=== PATIENT | male | born 1940 | race Caucasian/White ===

== ENCOUNTER 2017-04-04 13:23 | Inpatient (IN) | payer MEDICARE, OTHER ==
[2017-04-04] VITALS (9 sets, daily range): BP systolic 121–153; BP diastolic 65–82; PULSE 56–81; RESP 16–21; O2SAT 92–97
[~2017-04-04] VITALS: Ht 170.2 cm; Wt 81.2 kg
[~2017-04-04 13:23] MED LIST: ASPI-973 PO; GLUC500T12 PO; LISI10TA PO; OMEP20CA11 PO; SAW/1TAB2 PO; SILO4CAP PO; SIMV40TA5 PO; marijuana
--- NOTE | 2017-04-04 13:54 | ED.REPORT ---
HPI-Dyspnea / Wheezing Date of Service April 04, 2017 ED Provider: Dr. Mcgowan Pt is a 77 year old male with a hx of HTN, NSVT, proximal SVT, GERD and chronic back pain presenting to the ED complaining of productive cough and SOB for 3 days. Associated symptoms include lightheadedness, LE swelling ( reports), increased dyspnea on exertion. Denies fever, chest pain, diaphoresis, chills, palpitations. He was seen at today and was sent here due to new onset afib today. He reports that his breathing is worsened at night, and he has had to increase the angle of elevation that he sleeps at. 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 Pt usually walks 2-3 miles without SOB but since these symptoms began has not been able to. He denies any hx of heart disease or recent change in medications. Nursing Notes Stated Complaint: SOB Chief Complaint: Respiratory Complaints Nursing Notes Reviewed: Yes ([employer], [employer] not reconciled) Allergies: Coded Allergies: No Known Drug Allergies (Verified Allergy, Unknown, 03/11/16) Scheduled Aspirin (Aspirin) 81 Mg Tablet 81 MG PO DAILY Lisinopril (Lisinopril) 10 Mg Tablet 10 MG PO DAILY Omeprazole (Omeprazole) 20 Mg Capsule.dr 20 MG PO DAILY Simvastatin (Simvastatin) 40 Mg Tablet 40 MG PO HS Miscellaneous Medications ([marijuana]) Glucosamine (Glucosamine) 500 Mg Tablet 500 MG PO Saw/Vit E/Sod Radha/Lyc/Beta/Pyg (Prostate Health Caplet) 1 Each Tablet 1 EACH PO Silodosin (Rapaflo) 4 Mg Capsule 4 MG PO General Time Seen by MD: 13:54 Chief Complaint Shortness of breath Hx Obtained From: Patient Arrived By: Walk-in Sudden in Onset?: No Onset Occurred: 3 days ago Symptom Duration: Since onset Severity: Current: No pain currently Severity: Maximum: No pain Recent Healthcare: No recent hospitalization, Recent doctor visit Similar Sx Previous: Yes Past Medical History Past Medical History Pulmonary function tests for shortness of breath September 2016 revealed a very mild restrictive pattern, with a very mild reduction diffusing capacity Hypertension Hyperlipidemia GERD History of dysphagia history of anxiety Nonsustained ventricular tachycardia History of paroxysmal SVT Past Surgical History Endoscopy mild gastritis April 2016 Knee surgery Hernia repair Smoking History Former Smoker Social History Drug Use: THC Ambulatory Status Independent Review of Systems Constitutional: Denies: Chills, Fatigue, Fever Respiratory: Reports: Dyspnea on exertion, Prod cough, clear, Shortness of breath Cardiovascular: Denies: Chest pain, Palpitations Musculoskeletal: Reports: Extremity swelling Skin: Denies Diaphoresis Complete sys rev & neg: except as marked. Neurologic: Reports: Lightheaded Physical Exam Initial Vital Signs Vital Signs (First) Date Time Temp Pulse Resp B/P Pulse Ox O2 Delivery O2 Flow Rate FiO2 04/04/17 13:37 37.2 56 16 129/82 97 Room Air Initial VS: Reviewed, Vital signs normal Head / Eyes: Atraumatic, Normocephalic, PERRL ENT: Mucous membranes moist, Conjunctiva normal, No scleral icterus Abdomen / GI: Soft, Non-tender, No guarding, No rebound, No distention Skin: Warm, Dry, No cyanosis Neurologic: Alert, Oriented, Nonfocal Psychiatric: Mood/affect normal, Behavior normal, Normal thought content General/Constitutional: Awake, Alert, No acute distress Respiratory / Chest: Atraumatic, Breath sounds NL, Breath sounds = bilat, No respiratory distress Some crackles at bases. Cardiovascular: No gallop, No rubs Mild I/II heart murmur. Lower Extremity / Pelvis / MS: Neurologic intact, Vascular intact Mild +1 edema Interpretation & Diagnostics Lab Results Interpretation Result Diagram: 04/04/17 1400 04/04/17 1400 Test 04/04/17 14:00 04/04/17 15:20 White Blood Count 10.7th/mm3 (3.8-10.1) Red Blood Count 4.22mil/mm3 (4.40-5.80) Hemoglobin 13.2g/dL (13.8-17.2) Hematocrit 38.6% (41.0-50.0) Mean Corpuscular Volume 91.5fL (81-100) Mean Corpuscular Hemoglobin 31.3pg (27.0-35.0) Mean Corpuscular Hemoglobin Concent 34.2% (32.0-37.0) Red Cell Distribution Width 13.2% (12.3-15.4) Platelet Count 283bil/L (150-400) Neutrophils (%) (Auto) 78.3% (40-74) Lymphocytes (%) (Auto) 10.2% (14-46) Monocytes (%) (Auto) 9.1% (4-12) Eosinophils (%) (Auto) 1.1% (0-5) Basophils (%) (Auto) 0.5% (0-3) Prothrombin Time 10.1sec (8.1-12.5) Prothromb Time International Ratio 0.95ratio Sodium Level 129mEq/L (134-144) Potassium Level 4.1mEq/L (3.5-5.2) Chloride Level 90mEq/L (97-108) Carbon Dioxide Level 24mmol/L (18-29) Blood Urea Nitrogen 22mg/dL (8-27) Creatinine 0.92mg/dL (0.76-1.27) Estimat Glomerular Filtration Rate 85mL/min (>59) Glucose Level 109mg/dL (60-99) Calcium Level 9.4mg/dL (8.5-10.1) Total Bilirubin 0.6mg/dL (0.0-1.2) Aspartate Amino Transf (AST/SGOT) 24U/L (0-50) Alanine Aminotransferase (ALT/SGPT) 22U/L (0-44) Alkaline Phosphatase 97U/L (25-160) Troponin T < 0.010ug/L (0.0-0.011) Pro-B-Type Natriuretic Peptide 1439pg/mL (0-486) Total Protein 7.2g/dL (6.4-8.4) Albumin 3.9g/dL (3.4-5.0) Thyroid Stimulating Hormone (TSH) 1.060uIU/mL (0.450-4.500) Hold Schafer Top Tube Received (Received) Urine Color Yellow (YELLOW) Urine Appearance Clear (CLEAR,HAZY) Urine pH 7.0 (5.0-8.0) Urine Specific [place] 1.015 (1.003-1.035) Urine Protein Negativemg/dL (NEG,TRACE) Urine Glucose (UA) Negativemg/dL (NEGATIVE) Urine Ketones Negativemg/dL (NEGATIVE) Urine Occult Blood Negative (NEGATIVE) Urine Nitrite Negative (NEGATIVE) Urine Bilirubin Negative (NEGATIVE) Urine Urobilinogen Normalmg/dL (NORMAL) Urine Leukocyte Esterase Negative (NEGATIVE) Urine RBC 0-2/hpf (0-2) Urine WBC 0-5/hpf (0-5) Urine Epithelial Cells None/hpf (NONE-MOD) Urine Crystals None seen (NONE SEEN) Urine Bacteria Few/hpf (NONE-FEW) Urine Hyaline Casts None/lpf (NONE) Urine Granular Casts None seen (NONE SEEN) Urine Waxy Casts None seen (NONE SEEN) Urine Red Blood Cell Casts None seen (NONE SEEN) Urine White Blood Cell Casts None seen (NONE SEEN) Urine Mucus None seen (None Seen) Urine Trichomonas None seen (NONE SEEN) Urine Yeast None (NONE SEEN) Urinalysis Comment None Urine Culture Reflexed Not indicated Lab Results Interpretation: CBC normal CMP mild hyponatremia Troponin negative BMP elevated TSH normal ECG Interpretation ECG Interpretation: EKG demonstrated rate controlled atrial fibrillation rate of 59, markedly peaked T waves, no acute ischemic changes, I do not have access to any old EKGs-ray except for the EKG obtained from urgent care today, which is unchanged from the current EKG, urgent care indicates that the atrophic versus new compared to an old EKG they have access to, but that I do not out current EMR. I urgent care report, and patient also agrees as far she is aware, the atrial fibrillation is new Time: 14:03 Interpreted by: ED physician X-Ray Chest Interpretation Chest Xray Interpretation: IMPRESSION: 1. Mild chronic interstitial prominence without definite acute cardiopulmonary disease. Dictated by: Sunny Pedraza M.D. on 04/04/2017 at 14:24 View: Portable, 1 view Interpretation / Wet Read by: Interpret - Radiologist Re-Eval/Medical Decision Med Decision/Clinical Course This is a 77-year-old male has some chronic lung disease followed by pulmonology mild for which he uses an inhaler, but now presents with 3 days of increasing shortness of breath, orthopnea, and significantly worsening dyspnea on exertion. He reports no fever, he does have a mild cough with clear sputum. He went to urgent care was noted to have new leg edema, as well as to be in newly diagnosed atrial fibrillation (rate controlled) and was sent to the emergency department. He denies any previous known cardiac history and his had a negative nuclear stress test of the normal EF of 70% March of last year, but he was in a sinus rhythm at that time, and I cannot find any cardiac cardiology notes a prior echocardiograms. The records from urgent care also claim a history of mild aortic valvular disease, but the patient cannot tell me anything about that. He has been using his pro-air aggressively over the past few days, which is only helped marginally-he does not normally use it at baseline., He does have crackles, he does have +1 edema of the legs, and he indeed does have atrial fibrillation, and he also has some mild +1 to +2 heart murmur on exam. His EKG reveals new rate controlled atrial fibrillation unchanged from the EKG at urgent care, but I do not have access to any old EKGs-according to urgent care they stated this is new, and indeed is not mentioning in any previous records I have access to. His chest x-ray suspicious for mild CHF, but not entirely diagnostic. Further arguing for CHF is and elevated BNP. At this point the patient's having baseline lung disease, now with worsening shortness of breath, with a new dysrhythmia, with possible valvular disease, and findings suspicious for CHF, I recommended admission and an echocardiogram. The patient on some low-dose furosemide as he is not on a diuretic. The patient's being admitted after the case was discussed with the hospitalist. Source of Hx: Old records ( ) Re-Evaluation/Progress : Time of Eval: 15:49 Patient Status: Condition improved Re-Evaluation/Progress Note: Discussed xray results and plan for admission. Pt understands and agrees with plan. Consultation : Referral / Consult Name: Pam Herman DO Consulted With: Hospitalist Call Returned at: 16:16 [employer] Florist: Will see patient, Agrees with plan, Accepts admit Differential Diagnosis: Positive: Congestive heart failure, Dysrhythmia (new- onset fibrillation), Negative: Acute coronary syndrome, Cardiogenic shock, Panic attack, Pneumonia , Pneumothorax, Pulmonary embolism, Respiratory failure Counseled Regarding: Diagnosis, Lab results, Need for follow-up, When/why to return to ED Discharge & Departure Impression: Primary Impression: Congestive heart failure Congestive heart failure type: unspecified congestive heart failure type Congestive heart failure chronicity: acute Qualified Code: I50.9 - Heart failure, unspecified Additional Impressions: New onset atrial fibrillation Shortness of breath Elevated brain natriuretic peptide (BNP) level Chronic interstitial lung disease Disposition: ADMITTED TO HOSPITAL Discharge Condition All VS Reviewed: Yes Condition: Improved Referrals: Bhavik Vega (PCP) Scribe Attestation Portions of this note were transcribed by Michelle Katz. I, Dr. Mcgowan personally performed the history, physical exam and medical decision-making; I reviewed and confirmed the accuracy of the information in the transcribed note. Signed by: Devan Ruiz, 04/04/2017 at 1619. copies to: Bhavik Vega Matthew F MD April 04, 2017 13:54 MICHELLE KATZ April 04, 2017 14:03
[2017-04-04] MEDS ORDERED: Ipratropium 0.02% 0.5 mg/2.5 mL Inhalation Solution NEB ONE (14:10)
[2017-04-04] MEDS ORDERED: Albuterol 2.5 mg/3 mL Inhalation Solution NEB ONE (14:10)
[2017-04-04 14:15] LABS: BASOPHILS % (AUTO) 0.5 % (0-3); EOSINOPHILS % (AUTO) 1.1 % (0-5); MONOCYTES % (AUTO) 9.1 % (4-12); Mean Corpuscular Hemoglobin 31.3 pg (27.0-35.0); Mean Corpuscular Volume 91.5 fL (81-100); NEUTROPHILS % (AUTO) 78.3 % (40-74); Platelet Count 283 bil/L (150-400)
[2017-04-04 14:32] LABS: INR 0.95 ratio
--- NOTE | 2017-04-04 14:33 | DRSVH ---
PROCEDURE: X-RAY CHEST ONE VIEW, PORTABLE ([id number]) INDICATIONS: SOB TECHNIQUE: One view of the chest was acquired. COMPARISON: [facility], CR, XR CHEST 2VW, 10/13/2016, 9:34. FINDINGS: Surgical changes and devices: None. Lungs and pleura: No pleural effusions or pneumothorax. There is mild interstitial prominence which appears chronic. No acute consolidation. Mediastinum: Mediastinal contours appear unchanged. Heart size is within normal limits. Bones and chest wall: No suspicious bony lesions. Overlying soft tissues appear unremarkable. IMPRESSION: 1. Mild chronic interstitial prominence without definite acute cardiopulmonary disease. Dictated by: Sunny Pedraza M.D. on 04/04/2017 at 14:24 Approved by: Sunny Pedraza M.D. on 04/04/2017 at 14:25
[2017-04-04 14:52] LABS: TROPONIN T < 0.010 ug/L (0.0-0.011)
[2017-04-04] MEDS ORDERED: Furosemide 10 mg/mL 4 mL Inj IVPUSH ONE (15:40)
[2017-04-04 16:03] LABS: APPEARANCE,URINE CLEAR (CLEAR,HAZY); COLOR,URINE YELLOW (YELLOW); OCCULT BLOOD,URINE NEGATIVE (NEGATIVE); UROBILINOGEN,URINE NORMAL (NORMAL)
[2017-04-04] MEDS ORDERED: FLUT12AE8 INHALATION (18:06)
[2017-04-04] MEDS ORDERED: METO50TA3 PO (18:06)
[2017-04-04] MEDS ORDERED: ALBU8.5H2 INHALATION (18:06)
[2017-04-04] MEDS ORDERED: HYG25 PO (18:06)
[2017-04-04] MEDS ORDERED: Alum-Mag Hydrox-Simeth 30 mL Suspension PO PRN (18:10)
[2017-04-04] MEDS ORDERED: Senna-Docusate 8.6-50 mg Tablet PO PRN (18:10)
[2017-04-04] MEDS ORDERED: Ondansetron 2 mg/mL 2 mL Inj IVPUSH PRN (18:10)
[2017-04-04] MEDS ORDERED: Polyethylene Glycol (PEG) 17 Gm Powder PO PRN (18:10)
[2017-04-04] MEDS ORDERED: Albuterol HFA 60 Puff 8 Gm Inhaler INHALATION PRN (18:15)
--- NOTE | 2017-04-04 18:17 | PCM.ADCARE ---
Advance Care Planning Note Plan: Purpose of encounter: Goals of care Parties in attendance: The patient Decisional capacity: Good Plan: The patient is aware of the current diagnosis and would like to continue to be full code. The patient understands that this means for chest compressions , intubation, pressors, and all measures involved with CPR. CODE STATUS: Full code Time spent with advanced care planning: Greater than 16 minutes Pam Herman DO April 04, 2017 18:17
[2017-04-04] MEDS ORDERED: Albuterol 2.5 mg/3 mL Inhalation Solution NEB PRN (18:30)
--- NOTE | 2017-04-04 18:31 | PCM.HPMED ---
Subjective Date of Service April 04, 2017 Primary Provider: Admitting Physician: Pam Herman DO Primary Care Physician: Joshua Adkins MD Attending Physician: Pam Herman DO Allergies Coded Allergies: No Known Drug Allergies (Verified Allergy, Unknown, 03/11/16) PMH Social History Hx Alcohol Use: No Hx Substance Use: Yes (marijuana edibles) Smoking Status: Former Smoker Exam Vital Signs Vital Sign - Last Date Time Temp Pulse Resp B/P Pulse Ox O2 Delivery O2 Flow Rate FiO2 04/04/17 17:38 71 04/04/17 17:23 37.0 18 143/78 96 Room Air Lab and Diagnostics Result Diagram: 04/04/17 1400 04/04/17 1400 Assessment & Plan HPI: Patient is a 77-year-old male who presents to the emergency room with the complaint of increasing shortness of breath. The patient stated that he went to the urgent care and at that time they found him to be more short of breath and showing signs of A. fib with RVR and CHF. The patient was immediately brought to the emergency room and was found to still be in A. fib but was rate controlled. The patient states that he does not have a history of A. fib nor does he have a history of CHF. The patient states that he has had shortness of breath previously however nothing to this extent. Patient currently complains of some chest pain, shortness of breath but denies any nausea vomiting or diarrhea. Home medications: -Albuterol 2 puffs every 2 when necessary wheezing Aspirin 81 mg daily Chlorthalidone 25 mg daily Flovent 110 g 2 puffs twice a day Metoprolol tartrate 50 mg by mouth twice a day Omeprazole 20 mg by mouth daily Prostate health capsule 1 daily Rapaflo 4 mg daily Simvastatin 40 mg daily at bedtime Marijuana Allergies: No known drug allergies PMHx: Hyperlipidemia Hypertension GERD with past history of bleeding ulcers BPH Mild dementia SHx: Bilateral total knee replacement Bilateral hernia repair Tonsillectomy as a child FHx: Father age 74 secondary to [place] Sr. 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 Please see HPI for pertinent positives, all other systems are negatives. Physical Exam: GEN: Patient was awake, alert, responding appropriately to questions HEENT: Pupils equal round and reactive to light, extraocular eye muscles intact , Neck soft supple, trachea midline, nomocephalic/atraumatic CV: Irregular Respiratory: Coarse breath sounds, no wheezes rales or rhonchi GI: +bowel sounds x4, soft, compressible, nontender to palpation EXT: no clubbing, cyanosis, edema Neuro: Cranial nerves II-XII grossly intact Psych: mood and affect were appropriate Assessment and Plan 77-year-old male presents with new onset CHF and A. fib with RVR New onset CHF -Lasix 40 mg by mouth daily - Echo -Decreased patient's home dose of metoprolol from 50 mg twice a day to 25 mg twice a day secondary to bradycardia -Telemetry -Consult cardiology in the morning -Follow up BNP in the morning -TSH pending -Hemoglobin A1c pending -Follow up labs in the morning -Nutrition consult -Strict I's and O's A. fib (currently rate controlled) new onset -Continue to monitor via telemetry -Metoprolol 25 mg twice a day Hypertension -Continue lisinopril 10 mg daily -Decrease metoprolol to 25 mg twice a day - Continue to monitor Hyperlipidemia -Continue simvastatin 40 mg by mouth daily at bedtime BPH -Tamsulosin 0.4 mg daily GERD -Continue omeprazole 20 mg daily Diet: Heart healthy DVT prophylaxis: Heparin 3 times a day subcutaneous Code Status: Full code Disposition: Due to the nature of the patient's current diagnosis anticipated stay is greater than 2 midnight Time spent One hour Pam Herman DO April 04, 2017 18:31
--- NOTE | 2017-04-04 18:46 | NUR ---
ADMIT Admitted a 77/M into room 3004 following report from ED RN Tawanna Hand Pt arrived ~1730 via stretcher, able to amb to bed without c/o dizziness. Per pt, he has been SOB x3 days and went to urgent care who then sent him to ED. Pt denies any pain/discomfort with exception of slight tightness in chest which he feels is anxiety r/t admission. MD in room and aware. IV flushing without issue. Pt on RA at this time. TELE in place: per technical staff assistant pt is afib in the 70-80's. Pt placed on strict I/O's so educated on importance of using urinal to allow staff to measure. Pt introduced to staff, call light and bed controls. Bed in lowest, locked position and call light in reach.
[2017-04-04 19:09] LABS: INR 0.98 ratio
[2017-04-04 19:23] LABS: Magnesium 1.6 mg/dL (1.6-2.6)
[2017-04-04] MEDS ORDERED: FLUTICASONE PROPIONATE INHALATION SCH (20:30)
[2017-04-04] MEDS: Fluticasone 250 mCg Inhaler INHALATION SCH (20:42)
[2017-04-04] MEDS: Sodium Chloride LOK Flush 10 mL Syringe IVFLUSH SCH (20:42)
[2017-04-05] VITALS (11 sets, daily range): BP systolic 83–127; BP diastolic 56–72; PULSE 64–80; RESP 18–20; O2SAT 91–95
--- NOTE | 2017-04-05 04:07 | NUR ---
respiratory Pt reports that his SOB and chest tightness are still the same. Had 850mL UOP. independent to the bathroom; gait steady. SpO2 >92% on RA even when sleeping. Temazepam given per pt's request with some sleep. tele Afib 60s-80s. on 2L fluid restriction; pt compliant
[2017-04-05 07:00] LABS: Phosphorus 3.9 mg/dL (2.5-4.9)
[2017-04-05] MEDS ORDERED: Furosemide 10 mg/mL 10 mL Inj IVPUSH SCH (07:05)
[2017-04-05] MEDS ORDERED: KCl 40 mEq/D5W 500 mL 40 MEQ in IV Premix 1 EACH IV ONE (07:10)
[2017-04-05] MEDS: Pantoprazole 20 mg ER24 Tablet PO SCH (07:18)
[2017-04-05] MEDS: Furosemide 10 mg/mL 4 mL Inj IVPUSH SCH ×2 (08:05→20:30)
[2017-04-05] MEDS: Fluticasone 250 mCg Inhaler INHALATION SCH ×2 (08:05→20:43)
[2017-04-05] MEDS: Sodium Chloride LOK Flush 10 mL Syringe IVFLUSH SCH ×2 (08:06→17:26)
[2017-04-05] MEDS ORDERED: Heparin 5,000 Unit/mL Inj SUBQ SCH (08:30)
--- NOTE | 2017-04-05 08:59 | NUR ---
Social Work-initial assessment: Data:See initial assessment. Pt is a 77 y/o female who was admitted on 04/04/17 for SOB, CHF, New Onset Afib per H&P. Pt's insurance is [employer] and [employer] and PCP is Joshua Adkins MD. EMR Reviewed. Pt's readmission score is 2-no risk. SW met with pt to discuss discharge planning, SW role explained. Pt is alert and oriented x3, was up independent in room. Pt resides at home with in a single level home with 6 steps to enter where pt remains independent with basic ADLs. Pt uses no DME at baseline and does not drive. Pt has no HH or SNF history. Pt has completed DPOA/ advanced directive paperwork and agreed to provide the hospital with a copy. Pt has no long-term care benefits and [employer] insurance through [place]. Cardiology consult pending. Pt's family to provide transport home at discharge. SW provided phone number and plan on white board in room. SW will continue to follow. Assessment:Pt who resides at home with and is independent at baseline Plan:Pt to likely discharge home via POV when medically stable. Cardiology consult pending. SW will continue to follow for possible HH needs. NATASHA Burciaga Addendum: 04/05/17 at 0906 by JONO FSOS Amended: Links added.
--- NOTE | 2017-04-05 10:45 | CONS ---
[address] [address] CONSULTATION REPORT PATIENT: BRENDA JO : 1940 MR#: [id number] ADMIT: 04/04/2017 JOB ID: [id number] CORRECTED REPORT: DATE OF SERVICE: 04/05/2017 REASON FOR CONSULT: For the evaluation of atrial fibrillation, CHF. Hospitalist team asked us to see this patient. CHIEF COMPLAINT: Worsening shortness of breath as well as new cough and whitish sputum since this last Wednesday. PRESENT HISTORY: This 77-year-old, pleasant, male, who has a history of cardiac murmur for a long time, mild aortic stenosis based on echocardiogram done in February 2016, severe left atrium enlargement at that time, with mild pulmonary hypertension, coronary artery calcifications, status post left heart catheterization in November 2009, in [facility]. At that time, he had mid circumflex about 30%, mild bridging of the mid LAD without any critical coronary artery disease at that time, history of nonsustained ventricular tachycardia, PSVT, essential hypertension, hyperlipidemia, history of smoking in the past, mild restrictive lung disease based on pulmonary function test done last year, history of GERD, intermittent dysphagia, status post upper GI and lower GI endoscopy in April 2016. At that time, the patient had mild gastritis, some internal hemorrhoids, colon polyps, and got admitted because of above-mentioned chief complaint. According to the patient, this last Wednesday, he drove about 14 hours intermittently from [place] all the way to [place]. He lives in [place]. He was doing okay up until Wednesday. The next day, he started having cough with whitish sputum. The next day, he noticed that when he is walking and doing moderate exertion, he is experiencing more shortness of breath. There was no PND, orthopnea, fever, chills, hemoptysis, or typical anginal pain or palpitation. There was no new extra swelling in his lower extremities. His symptoms did not get better. He was seen by Urgent Care yesterday and found to have atrial fibrillation with fast ventricular rate. He was sent to the ED. In the ED, his atrial fibrillation rate was controlled. He was found to have congestive heart failure as well. He got admitted to the hospital. Cardiology consult was sought. At present, he is sitting on his chair. Denies any history of excessive alcohol intake or obstructive sleep apnea, or hyperthyroidism. His last echocardiogram on March 20, 2016. At that time, LV ejection fraction was about 60% range, with pulmonary artery systolic pressure 43 mmHg. Peak aortic valve velocity 3.3 m/sec and mean gradient 23 mmHg, with aortic valve area 1.7 cm2. There was mild mitral regurgitation. He had a perfusion study last year, on April 13, 2016. At that time, he walked on Ryan protocol for 7 minutes 18 seconds. His LV function was preserved. There was normal myocardial perfusion. At present, he is not having any active chest pain or worsening shortness of breath, palpitation or stroke-like symptoms. PAST MEDICAL HISTORY: History of coronary artery calcification, status post left heart catheterization in November 2009. At that time, he did not have any critical coronary artery disease. Details as stated above, mild aortic stenosis based on echocardiogram in February 2016, mild MR, mild TR, mild pulmonary hypertension, chronic shortness of breath, mild restrictive lung disease, history of intermittent bronchitis, history of tobacco abuse in the past for about 15 years, essential hypertension, hyperlipidemia, GERD, intermittent dysphagia with solid food which is not getting worse, status post upper GI and lower GI endoscopy in April 2016. At that time, the patient had mild gastritis and colon polyps as well as internal hemorrhoids and left-sided diverticulosis without any significant esophageal pathology. Prostate problem with BPH, history of mild dementia. PAST SURGICAL HISTORY: Bilateral total knee replacement, bilateral hernia repair, tonsillectomy as a child, left heart catheterization. MEDICATION AT HOME: 1. Albuterol inhalers as needed. 2. Aspirin 81 mg daily. 3. Chlorthalidone 25 mg daily. 4. Flovent 110 mcg, two puffs twice a day. 5. Metoprolol tartrate 50 mg twice a day. 6. Omeprazole 20 mg daily. 7. Prostate Health Rapaflo 4 mg daily. 8. Simvastatin 40 mg at bedtime. 9. Marijuana. FAMILY HISTORY: Positive for OR and Parkinson's disease. SOCIAL HISTORY: Denies any alcohol abuse. He used to smoke in the past. Denies any current tobacco smoking. REVIEW OF SYSTEMS: Ten point review of systems were obtained. They are negative except as stated above. ALLERGIES: No known drug allergies. PHYSICAL EXAMINATION: Blood pressure 122/68, heart rate 77, respiratory rate 20, oxygen saturation room air 94%. HEENT: No significant anemia, jaundice. Neck: No apparent JVP. No obvious carotid bruits. Chest: Decreased air entry at the bases, with prolonged expiratory phase bilaterally. CVS: S1 variable, P2 appears prominent. No S3, no S4. Diffuse grade 2/6 ejection systolic murmur. Abdomen: Obese, no obvious pulsatile mass felt. No obvious hepatosplenomegaly. Extremities: At present, no significant pedal edema. Vascular: No evidence of critical limb ischemia. [employer]CHITECT: Alert, oriented to time, place, and person. Able to move all the four extremities. X-RAYS: X-ray of the chest yesterday revealed mild chronic interstitial prominence with normal size heart, without any acute cardiopulmonary disease. LABORATORIES: WBC 10.7, hemoglobin 13.2, platelets 283, polymorphs 78.3. INR 0.98. APTT 27.5, PT 10.5. Sodium 127, potassium 3.3, BUN 23, creatinine 0.69, magnesium 1.6, phosphorus 3.9, calcium 9.3. Troponin-T 0.010. ProBNP 1605. Albumin 4.1, triglycerides 60, total cholesterol 184, LDL 100, HDL 72. Procalcitonin 0.104. TSH 1.28. EKG on admission revealed atrial fibrillation with rate 59, with early transition with nonspecific ST-T changes. QTc 445 msec. In telemetry at present, heart rate about 80s with atrial fibrillation. In the morning, heart rate went up to 120 with atrial fibrillation with fast ventricular rate. ASSESSMENT/PLAN: New onset atrial fibrillation. Duration unknown. Resulted in symptoms of congestive heart failure, likely diastolic in the face of mild aortic stenosis, mild mitral regurgitation (MR), mild tricuspid regurgitation (TR), mild pulmonary hypertension in the past, known nonobstructive coronary artery disease based on left heart catheterization in November 2009, normal myocardial perfusion based on exercise perfusion study in March 2016, history of supraventricular tachycardia (SVT) and non-SVT in the past, essential hypertension, hyperlipidemia, known history of mild restrictive lung disease, history of intermittent bronchitis episode for many years. At present, will follow rate control strategy plus anticoagulation. His [id number] score is 4, with annual risk of stroke 4%. No active medical bleeding problem. No absolute contraindication for anticoagulation. Hence, he will need anticoagulation for stroke prevention. Clinically, I do not suspect a pulmonary embolism. So far, no obvious calf tenderness. Discussed with the patient different anticoagulation including warfarin or new oral anticoagulants. He agreed to try a new oral anticoagulant. Will try Eliquis 5 mg twice a day. I will stop subcu heparin. As he has nonobstructive coronary artery disease in 2009, will continue baby aspirin 81 mg daily. He was taking metoprolol tartrate 50 mg twice a day and because of slow heart rate, like in the 50s, it was decreased to 25 b.i.d. However, at present, heart rate has increased. Will increase it to 25 mg three times a day. Will get a 2D echo to assess the severity of aortic stenosis and make sure there is no underlying left ventricular (LV) systolic dysfunction. He has severe left atrium enlargement based on last echocardiogram in the past. Discussed with the patient about cardioversion as well. Down the road, if he remains symptomatic, will consider PRISCILLA cardioversion, as he was not anticoagulated before. Benefits and risks, which include, but not limited to, risk of bleeding, GI perforation, aspiration, anesthesia related complications, stroke, coma, , etc., discussed. He verbalizes understanding. Meanwhile, we will optimize his medical therapy. He is hyponatremic. He was on chlorthalidone and getting diuretic, as well as he has congestive heart failure (CHF). Hence, multiple etiologies. His TSH is normal. At this point of time, I will stop chlorthalidone. Will check serum osmolality as well. His recent troponin normal. TSH normal. Some of the symptoms suggestive of acute bronchitis as well. Management I will leave up to the hospitalist team. Further plan will be based on the result of above-mentioned diagnostic tests and his hospital course. Will recommend electrolytes replacement. His magnesium is low normal. Will start magnesium supplementation as well. Thanks for the Cardiology consult. The Cardiology service will continue to follow. TOTAL TIME SPENT: Today, about 75 minutes, including reviewing his old records, telemetry and examining the patient. Corrected by GILLES 04/16/17 at 1:20pm Report type.
[2017-04-05] MEDS ORDERED: 0.9% Sodium Chloride 1,000 ML IV ONE (14:10)
[2017-04-05 14:41] LABS: Mean Corpuscular Hemoglobin 31.2 pg (27.0-35.0)
--- NOTE | 2017-04-05 14:44 | PCM.PNMED ---
Subjective Date of Service April 05, 2017 Subjective Patient was seen and examined at bedside today. Patient denies any nausea, vomiting, diarrhea. Patient still complains of some difficulty breathing but states that it has improved and also still complains of chest tightness. Overnight events: None Exam Vital Signs Vital Sign - Last Date Time Temp Pulse Resp B/P Pulse Ox O2 Delivery O2 Flow Rate FiO2 04/05/17 13:52 72 83/56 04/05/17 13:50 37.2 20 93 Room Air Exam Physical Exam: GEN: Patient was awake, alert, responding appropriately to questions HEENT: Pupils equal round and reactive to light, extraocular eye muscles intact , Neck soft supple, trachea midline, nomocephalic/atraumatic CV: Irregular, grade 3/6 systolic murmur Respiratory: CTAB, no wheezes, rales, rhonchi GI: +bowel sounds x4, compressible, nontender to palpation, mild abdominal distention EXT: no clubbing, cyanosis, edema Neuro: Cranial nerves II-XII grossly intact Psych: mood and affect were appropriate IVs and Medications Medications Reviewed: Medications were reviewed in detail Lab and Diagnostics Result Diagram: 04/04/17 1400 04/05/17 1305 Assessment & Plan 77-year-old male presents with new onset CHF and A. fib with RVR New onset diastolic CHF -Discontinue Lasix 40 mg by mouth daily - Echo: Aortic stenosis with normal EF -Decreased patient's home dose of metoprolol from 50 mg twice a day to 25 mg twice a day secondary to bradycardia (04/04/17) -Cardiology has increased the patient's dose of metoprolol to 25 mg every 8 hours (04/05/17) -Continue Telemetry -Follow up BNP in the morning -TSH 1.2 within normal limits -Hemoglobin A1c pending -Nutrition consult -Strict I's and O's -ChadVasc score of 4 -Cardiology following (Dr. Reyes) appreciate recommendations A. fib (currently rate controlled) new onset -Continue to monitor via telemetry -Increase metoprolol to 25 mg every 8 hours -Anticoagulation with eliquis -Possible PRISCILLA on Wednesday or Hyponatremia -Sodium 127 -Bolus 1 L of fluid -Continue to monitor -Follow up electrolytes in the morning Shortness of breath -Ultrasound of the lower extremities bilaterally (patient has recently been on a road trip to [place]) -There are some concerns for bronchiectasis from cardiology however the patient has been afebrile, and has no white count, he does have a procalcitonin that is mildly elevated -We will continue to monitor and treat as medically indicated Hypertension -Continue lisinopril 10 mg daily -Discontinue chlorthalidone -Increase metoprolol to 25 mg 3 times a day - Continue to monitor Hyperlipidemia -Continue simvastatin 40 mg by mouth daily at bedtime -LDL cholesterol is 100 -Total cholesterol is 184 (within normal limits) BPH -Tamsulosin 0.4 mg daily GERD -Continue omeprazole 20 mg daily Diet: Heart healthy DVT prophylaxis: Anticoagulate with Elaquis Code Status: Full code Disposition: The patient is medically complex. The patient's case was discussed with cardiology (Dr. Reyes) who states that the patient has diastolic heart failure and possibly acute bronchiectasis. Lower extremity Dopplers have been ordered and will follow up. Patient still needs significant workup will be urinary to 3 days. Pam Herman DO April 05, 2017 14:44 New onset CHF -Lasix 40 mg by mouth daily - Echo -Decreased patient's home dose of metoprolol from 50 mg twice a day to 25 mg twice a day secondary to bradycardia -Telemetry -Consult cardiology in the morning -Follow up BNP in the morning -TSH pending -Hemoglobin A1c pending -Follow up labs in the morning -Nutrition consult -Strict I's and O's A. fib (currently rate controlled) new onset -Continue to monitor via telemetry -Metoprolol 25 mg twice a day Hypertension -Continue lisinopril 10 mg daily -Decrease metoprolol to 25 mg twice a day - Continue to monitor Hyperlipidemia -Continue simvastatin 40 mg by mouth daily at bedtime BPH -Tamsulosin 0.4 mg daily GERD -Continue omeprazole 20 mg daily Diet: Heart healthy DVT prophylaxis: Heparin 3 times a day subcutaneous Code Status: Full code Disposition: Due to the nature of the patient's current diagnosis anticipated stay is greater than 2 midnight Pam Herman DO April 05, 2017 14:44
--- NOTE | 2017-04-05 15:33 | DRSVH ---
[facility] [address] [place] [address] Echocardiogram Report Name: BRENDA JO Study Date: 04/05/2017 Height: 67 in Hospital Exam Location: [facility] Weight: 179 lb Gender: Male BSA: 1.9 m2 : 1940 Age: 77 yrs BP: 122/68 mmHg Reason For Study: SOB, New onset Afib Ordering Physician: Performed By: Meri Pulliam HOSPITALIST [facility] Interpretation Summary The patient was in atrial fibrillation with heart rates between 61-83 bpm during the exam (New). The left ventricle is normal in size. The ejection fraction is estimated to be 65-70%. The E/E' ratio is abnormal. The right ventricle is normal size. Right ventricular systolic function is at the lower limits of normal. There is mild mitral regurgitation. Compared to the prior echo study, there has been no change in the severity of mitral regurgitation. No significant mitral valve stenosis. The aortic valve is moderately calcified. Leaflet mobility is moderate to severely reduced. The peak aortic velocity is 3.4 m/sec. The aortic valve mean gradient is 26 mmHg. The peak aortic velocity on the previous exam was 3.3 m/sec. The calculated aortic valve area is 1.9 cm2. Based on all the parameters, overall moderate . Compared to the prior echo study, there has been a decrease in the severity of aortic stenosis. There is trace tricuspid regurgitation. The right ventricular systolic pressure is estimated at 48 mmHg assuming a right atrial pressure of 15 mm Hg. Compared to the prior echo exam, there has been an increase in the severity of pulmonary hypertension. Procedure: A two-dimensional transthoracic echocardiogram with color flow and Doppler was performed. The study quality was technically adequate. A contrast injection of Definity was performed to improve assessment of LV function. Comparison is made with the echocardiogram of 03/20/2016. The patient was in atrial fibrillation with heart rates between 61-83 bpm during the exam. Left Ventricle: The left ventricle is normal in size. Left ventricular wall thickness is mild-moderately increased. The ejection fraction is estimated to be 65-70%. There are no focal wall motion abnormalities. Diastolic function could not be accurately assessed due to atrial fibrillation. The E/E' ratio is abnormal. Right Ventricle: The right ventricle is normal size. Right ventricular systolic function is at the lower limits of normal. Atria: The left atrium is severely dilated. The left atrium has remained unchanged in size since the prior echo exam. Right atrial size is normal. There has been no significant change since the previous study. There is no Doppler evidence for an interatrial shunt. Mitral Valve: There is severe posterior mitral annular calcification. There has been no significant change since the previous study. There is moderate to severe mitral annular calcification. No significant mitral valve stenosis. There is mild mitral regurgitation. Compared to the prior echo study, there has been no change in the severity of mitral regurgitation. Aortic Valve: The aortic valve is moderately calcified. The aortic valve is not well visualized. Leaflet mobility is moderate to severely reduced. The calculated aortic valve area is 1.9 cm2. The peak aortic velocity is 3.4 m/sec. The aortic valve mean gradient is 26 mmHg. The peak aortic velocity on the previous exam was 3.3 m/sec. Compared to the prior echo study, there has been a decrease in the severity of aortic stenosis. No aortic regurgitation is present. Tricuspid Valve: The tricuspid valve is not well visualized, but is grossly normal. The right ventricular systolic pressure is estimated at 48 mmHg assuming a right atrial pressure of 15 mm Hg. There is trace tricuspid regurgitation. Compared to the prior echo exam, there has been a decrease in TR severity. Compared to the prior echo exam, there has been an increase in the severity of pulmonary hypertension. Pulmonic Valve: The pulmonic valve is not well seen, but is grossly normal. There is trace pulmonic regurgitation. Great Vessels: The aortic root is normal size. The ascending aorta is mildly enlarged. The IVC is dilated (diameter is greater than 2.1 cm) and it collapses less than 50% with a sniff. This suggests a high right atrial pressure of 15 mm Hg. Pericardium/ Pleura There is no pericardial effusion. MMode/2D Measurements & Calculations LVIDd: 4.1 cm RA long axis LVOT diam LVIDs: 2.8 cm LA A2 area: 36.2 cm FS: 31.4 % LA A4 area: 28.4 cm RA area AoV Opening IVSd: 1.5 cm LA length (vol): 7.3 cm LVPWd: 1.2 cm LA vol: 120.4 ml : 14.2 cm Ao root diam LA vol index RA vol : 34.7 ml Aortic Jxn RA IVC diam: 2.8 cm : 18.0 mm2 asc Aorta Diam: 3.4 cm LV wood. diameter/BSA LV sys. diameter/BSA RVD1 (basal) TAPSE: 1.8 cm (cm/m^2): 2.1 (cm/m^2): 1.5 Doppler Measurements & Calculations Ao V2 max MV E max franc Med Peak E' Franc TR max franc : 341.0 cm/sec : 121.7 cm/sec : 289.0 cm/sec Ao max PG MV P1/2t: 81.9 msec E/E' med: 16.4 TR max PG : 46.6 mmHg : 33.4 mmHg Ao mean PG MVA(VTI): 4.6 cm2 PA V2 max : 25.9 mmHg : 124.1 cm/sec LVOT Max Franc PA mean PG : 149.0 cm/sec PA Accel Time DEJA(I,D): 1.9 cm : 0.10 sec sev ratio MV V2 mean MV P1/2t max franc Ao V2 mean LV V1 max PG : 72.0 cm/sec : 235.5 cm/sec MV mean PG MVA(P1/2t): 2.7 cm2 Ao V2 VTI: 65.0 cmLV V1 VTI DEJA(V,D): 1.7 cm2 : 31.7 cm MV V2 VTI: 26.4 cm PA V2 mean DEJA indexed to BSA : 76.8 cm/sec (cm^2/m^2): 0.97 Reading Physician:KINA
--- NOTE | 2017-04-05 16:05 | DRSVH ---
PROCEDURE: US VENOUS LEG DUPLEX BILATERAL INDICATIONS: SOB TECHNIQUE: Real-time imaging, as well as color and pulse Doppler interrogation, were performed of the deep veins of both legs from the inguinal ligament to the popliteal fossa. COMPARISON: None. FINDINGS: The deep veins are normally compressible, and free of intraluminal thrombus. Color and pu lse Doppler demonstrate normal phasic intravascular flow. There is normal augmentation response to d istal compression maneuver. IMPRESSION: No deep venous thrombosis identified within either the left or right lower extremities. Dictated by: Yosef Suarez [facility] Interpreted: Jose Luis Campos MD on 04/05/2017 at 16:05 Transcribed by: TOBIAS on 04/05/2017 at 16:05 Approved by: Jose Luis Campos M.D. on 04/05/2017 at 16:33
--- NOTE | 2017-04-05 18:47 | NUR ---
Orthostatic Hypotension Patient BP 114/72 lying, 97/58 sitting and 83/56 standing. Metoprolol/IV bolus held per hospitalist.
[2017-04-05] MEDS ORDERED: Levalbuterol 1.25 mg/0.5mL Inhalation Solution NEB ONE (21:05)
[2017-04-06] VITALS (10 sets, daily range): BP systolic 99–128; BP diastolic 63–80; PULSE 60–92; RESP 18–22; O2SAT 94–97
[2017-04-06] MEDS: Sodium Chloride LOK Flush 10 mL Syringe IVFLUSH SCH ×3 (01:14→16:52)
--- NOTE | 2017-04-06 05:44 | NUR ---
respiratory Night hospitalist was notified of pt's BP before HS dose of Lasix which was 112/71. Rec'd an order to hold HS lasix and try xopenex neb treatment for moderately decreased lung sounds and unchanged SOB. Pt reported that neb treatment helped; More air movement noted. SpO2 in low 90s when sleeping; mid 90s when awake. midnight metoprolol given. BP was 128/76 lying with HR in 80s-90s; goes up to 120s with activity. HR went down to 60s-70s. this AM's orthos was negative.
[2017-04-06] MEDS: Pantoprazole 20 mg ER24 Tablet PO SCH (06:30)
[2017-04-06 07:01] LABS: Mean Corpuscular Hemoglobin 31.1 pg (27.0-35.0); Mean Corpuscular Volume 89.1 fL (81-100)
[2017-04-06] MEDS ORDERED: Potassium Chloride 20 mEq SR Tablet PO ONE (07:50)
[2017-04-06] MEDS ORDERED: KCl 40 mEq/D5W 500 mL 40 MEQ in IV Premix 1 EACH IV ONE ×2 (07:50→09:30)
[2017-04-06] MEDS ORDERED: 0.9% Sodium Chloride 500 ML IV ONE (08:00)
[2017-04-06 08:17] LABS: Vitamin B12 1034 pg/mL (211-946)
[2017-04-06] MEDS ORDERED: Furosemide 10 mg/mL 4 mL Inj IVPUSH SCH (08:30)
--- NOTE | 2017-04-06 09:09 | NUR ---
Spoke with Rose Mary in patient access at [facility] and this patient is 20% connected for arthritis. 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
[2017-04-06] MEDS ORDERED: Levalbuterol 1.25 mg/0.5mL Inhalation Solution NEB PRN (09:20)
[2017-04-06] MEDS ORDERED: Magnesium Sulf 2 Gm/50mL Water 2 GM in IV Premix 1 EACH IV ONE (09:20)
[2017-04-06] MEDS: Fluticasone 250 mCg Inhaler INHALATION SCH ×2 (10:52→20:55)
[2017-04-06] MEDS: MeTOProlol XL 50 mg ER24 Tablet PO SCH ×2 (10:52→20:55)
--- NOTE | 2017-04-06 17:07 | PCM.PNMED ---
Subjective Date of Service April 06, 2017 Subjective Patient was seen and examined at bedside today. Patient denies any chest pain, shortness of breath, nausea, vomiting, diarrhea. Overnight events:None Exam Vital Signs Vital Sign - Last Date Time Temp Pulse Resp B/P Pulse Ox O2 Delivery O2 Flow Rate FiO2 04/06/17 13:08 36.6 72 20 121/74 94 Room Air Intake and Output 04/05/17 04/05/17 04/06/17 Cumulative From/Thru 15:00 23:00 07:00 04/04/17 13:37 - 04/05/17 20:00 Intake Total 200 ml 1290 ml 1490 ml Output Total 1200 ml 925 ml 2125 ml Balance -1000 ml 365 ml -635 ml Intake Oral 200 ml 800 ml 1000 ml IV Total 490 ml 490 ml Output Urine Total 1200 ml 925 ml 2125 ml # Bowel Movements 1 1 Exam Physical Exam: GEN: Patient was awake, alert, responding appropriately to questions HEENT: Pupils equal round and reactive to light, extraocular eye muscles intact , Neck soft supple, trachea midline, nomocephalic/atraumatic CV: +S1/S2, regular rate and rhythm, systolic murmur auscultated Respiratory: Mild crackles in the bases of the lungs, no wheezes, rales, rhonchi GI: +bowel sounds x4, soft, compressible, nontender to palpation EXT: no clubbing, cyanosis, edema Neuro: Cranial nerves II-XII grossly intact Psych: mood and affect were appropriate IVs and Medications Medications Reviewed: Medications were reviewed in detail Lab and Diagnostics Result Diagram: 04/06/17 0602 04/06/17 0602 X-Rays, CTs and MRIs PROCEDURE: US VENOUS LEG DUPLEX BILATERAL INDICATIONS: SOB TECHNIQUE: Real-time imaging, as well as color and pulse Doppler interrogation, were performed of the deep veins of both legs from the inguinal ligament to the popliteal fossa. COMPARISON: None. FINDINGS: The deep veins are normally compressible, and free of intraluminal thrombus. Color and pulse Doppler demonstrate normal phasic intravascular flow. There is normal augmentation response to distal compression maneuver. IMPRESSION: No deep venous thrombosis identified within either the left or right lower extremities. Dictated by: Yosef VILLEGAS Interpreted: Jose Luis Campos MD on 04/05/2017 at 16:05 Transcribed by: TOBIAS on 04/05/2017 at 16:05 Approved by: Jose Luis Campos M.D. on 04/05/2017 at 16:33 Assessment & Plan 77-year-old male presents with new onset CHF and A. fib with RVR New onset diastolic CHF -Discontinue Lasix 40 mg by mouth daily - Echo: Aortic stenosis with normal EF -Decreased patient's home dose of metoprolol from 50 mg twice a day to 25 mg twice a day secondary to bradycardia (04/04/17) -Cardiology has increased the patient's dose of metoprolol to 25 mg every 8 hours (04/05/17) -Continue Telemetry -TSH 1.2 within normal limits -Hemoglobin A1c pending -Nutrition consult -Strict I's and O's -ChadVasc score of 4 -Cardiology following (Dr. Reyes) appreciate recommendations A. fib (currently rate controlled) new onset -Continue to monitor via telemetry -Change patient's metoprolol to succinate 50 mg twice a day as per recommendation by cardiology -Anticoagulation with eliquis -Possible PRISCILLA on Wednesday or -Nothing by mouth at midnight Hyponatremia possibly secondary to SIADH -Sodium 126 -Fluid restriction to 1.5 L -Continue to monitor -Discontinue chlorthalidone -Follow up electrolytes in the morning Shortness of breath -Ultrasound of the lower extremities bilaterally (patient has recently been on a road trip to [place]): Negative for DVT -There are some concerns for bronchiectasis from cardiology however the patient has been afebrile, and has no white count, he does have a procalcitonin that is mildly elevated -We will continue to monitor and treat as medically indicated -Follow-up chest CT Hypertension -Discontinue lisinopril 10 mg daily changed to 5 mg daily -Discontinue chlorthalidone -Changed to metoprolol succinate 50 mg twice a day - Continue to monitor Hyperlipidemia -Continue simvastatin 40 mg by mouth daily at bedtime -LDL cholesterol is 100 -Total cholesterol is 184 (within normal limits) BPH -Tamsulosin 0.4 mg daily GERD -Continue omeprazole 20 mg daily Diet: Heart healthy DVT prophylaxis: Anticoagulate with Elaquis Code Status: Full code Disposition: The patient is medically complex. The patient's case was discussed with cardiology (Dr. Reyes) today. At this time we will need to first correct the patient's electrolytes prior to performing the PRISCILLA. Once the patient's electrolytes are corrected then he should be ready for PRISCILLA. Will work patient up for possible underlying lung interstitial disease vs lung mass. Will follow up with chest CT. Pam Herman DO April 06, 2017 17:06
--- NOTE | 2017-04-06 17:30 | NUR ---
Pt off floor for CT via WC.
--- NOTE | 2017-04-06 18:07 | DRSVH ---
PROCEDURE: CT CHEST WITH CONTRAST ([id number]) INDICATIONS: 77 year-old male with shortness of breath. TECHNIQUE: After the administration of intravenous contrast, 5 mm thick sections acquired from the pulmonary api maya to the posterior costophrenic angles. 7 mm thick coronal and sagittal MIP reformats were acquire d. For radiation dose reduction, the following was used: automated exposure control, adjustment of mA and/or kV according to patient size. COMPARISON: [facility], CR, XR CHEST 1VW (PORTABLE), 04/04/2017, 13:59. [facility], CT, CT CHEST HIGH RESOLUTION WO CONTRAST, 01/28/2017, 9:38 AM. [facility], CR, XR CHEST 2VW, 10/13/2016, 9:34. FINDINGS: Image quality: Excellent. Lungs and pleura: Cluster nodular opacities are present in both lower lobes, more extensive on the ri ght. Calcified left midlung granuloma is also present. No pleural effusions or pneumothorax. Centra l and peripheral airways are patent and normal in caliber. Mediastinum: Heart size is normal, with senescent mitral valve annular calcification. No pericardia l effusion. No mediastinal or hilar adenopathy by size criteria. Thoracic aorta and central pulmona ry arteries are normal in size. Esophagus is normal in caliber. No hiatal hernia. Bones and chest wall: No suspicious bony lesions. Nonacute T3 vertebral body compression fracture is again noted, with moderate height loss. No axillary or supraclavicular adenopathy by size criteria. Thyroid gland is normal in size. Abdomen: Visualized upper abdominal solid organs appear normal. Upper abdominal bowel loops are nor mal in caliber. IMPRESSION: 1. Findings consistent with evolving right greater than left lower lung bronchopneumonia. Background pulmonary remote granulomatous disease. 2. Nonacute moderate T3 vertebral body compression fracture. Dictated by: Tremayne Monson M.D. on 04/06/2017 at 17:52 Approved by: Tremayne Monson M.D. on 04/06/2017 at 18:00
--- NOTE | 2017-04-06 19:42 | NUR ---
Ambulation Pt ambulated around unit as SBA and IV pole. Pt reported minor SOB and that activity level was minimal. Pt strong and steady on feet. Continuing with care.
--- NOTE | 2017-04-06 22:20 | NUR ---
Chest Pain Pt c/o sub-sternal chest pain around 2105, 4/10 continuously for 2 h. CP started while pt lying in bed, no obvious trigger (Activities or emotions),pt unable to described the nature of pain, no radiation, pt appears calm,no acute distress, pt said "I am not concerned". Hx of Gird. VSS, BP 128/80 HR60. Stat EKG done (A-fib,HR 60, charge nurse looked at the report). Maalox given, chest pain resolved in 45min. Dr. Green made aware.
--- NOTE | 2017-04-06 22:48 | NUR ---
V-tach Tele report at 2233:4 beats of v-tach, then back to a-fib 64. Asymptomatic, pt sleeping. Dr. Green pagemaira, pending response. Addendum: 04/06/17 at 2254 by DINO SNELL RN Dr. Green called back:"Don't need do anything", continue monitoring.
[2017-04-07] VITALS (10 sets, daily range): BP systolic 74–125; BP diastolic 43–84; PULSE 55–79; RESP 16–18; O2SAT 87–95
[2017-04-07] MEDS: Sodium Chloride LOK Flush 10 mL Syringe IVFLUSH SCH ×3 (00:51→16:39)
[2017-04-07] MEDS: Pantoprazole 20 mg ER24 Tablet PO SCH ×2 (05:29→08:59)
[2017-04-07 06:25] LABS: Mean Corpuscular Hemoglobin 30.9 pg (27.0-35.0); Mean Corpuscular Volume 88.6 fL (81-100)
[2017-04-07 06:41] LABS: Magnesium 2.1 mg/dL (1.6-2.6)
[2017-04-07] MEDS ORDERED: 0.9% Sodium Chloride 250 ML ONE (08:51)
[2017-04-07] MEDS: Fluticasone 250 mCg Inhaler INHALATION SCH ×2 (08:57→21:03)
[2017-04-07] MEDS: MeTOProlol XL 50 mg ER24 Tablet PO SCH ×2 (08:59→21:31)
[2017-04-07] MEDS: cefTRIAXone Inj 2,000 MG in Dextrose 5% Minibag Plus 50 ML IV SCH (09:54)
--- NOTE | 2017-04-07 11:47 | NUR ---
Social Work-Continued DIscharge Planning: Data:Pt is on day 3 of hospitalization for SOB, CHF, New Onset Afib per H&P. EMR reviewed. Per morning rounds pt's ammonia and sodium levels are too high and he will likely be here at least 2 more days. SW met with pt at bedside to follow up re: HH services for RN. Pt declined HH services at this time, will contact SW if he charges his mind. Pt's family to provide transport home at discharge. SW will continue to follow. Assessment: Pt who resides at home with and is independent at baseline Plan:Pt to likely discharge home via POV when medically stable. Pt declining HH services. SW will continue to follow. NATASHA Burciaga
--- NOTE | 2017-04-07 12:21 | PROG NOTE ---
[address] [address] PROGRESS NOTE PATIENT: BRENDA JO : 1940 MR#: [id number] ADMIT: 04/04/2017 JOB ID: [id number] DATE: 04/07/2017 SUBJECTIVE: The patient is feeling better today. He is not having any palpitation or worsening shortness of breath. He still has cough without any hemoptysis or yellowish sputum. No obvious PND, orthopnea. In summary, this 77-year-old pleasant male who has a history of cardiac murmur with mild aortic stenosis based on echocardiogram done in February 2016, coronary artery calcification status post left heart catheterization in November 2009 at [facility] which revealed 30% mid circumflex, mild bridging of the mid LAD without any critical coronary artery disease, history of nonsustained ventricular tachycardia, PSVT, essential hypertension, hyperlipidemia, history of smoking in the past, mild restrictive lung disease based on pulmonary function test done last year, GERD, intermittent dysphagia status post upper GI and lower GI endoscopy in April 2016. At that time, he had mild gastritis, some internal hemorrhoids, colon polyp. Got admitted because of symptoms of worsening shortness of breath, cough, some whitish sputum. The patient was found to have new onset atrial fibrillation. In the hospital the patient was started on anticoagulation with Eliquis. Rate controlled strategy initially was adopted. The patient was treated for diastolic dysfunction. He underwent echocardiogram on April 05, 2017 which revealed LV ejection fraction 65%-70% with normal size of right ventricle and right ventricular function lower limits of normal, mild mitral regurgitation, about moderate aortic stenosis with peak aortic valve velocity 3.4 m/sec and mean gradient about 26 mmHg, trivial tricuspid regurgitation, pulmonary artery systolic pressure about 48 mmHg. In the hospital, the patient also has hyponatremia, hypokalemia as well as magnesium of 1.6. His serum osmolality was low. Initially we thought that his hyponatremia multifactorial due to diastolic heart failure and some component of diuresis as well. However, in view of pulmonary symptoms, decided to do CT chest. There was possibility of SIADH in view of low serum osmolality. With diuretic treatment, he became compensated. His serial troponins were normal. He underwent CT chest on April 06, 2017, which revealed evolving right greater than left lower lung bronchopneumonia with background pulmonary granulomatous disease. The patient was started on azithromycin and Rocephin by the hospitalist team. He had a perfusion study in March 2016. At that time, he had normal myocardial perfusion. His blood pressure 121/84, heart rate 77 and irregular, respiratory rate 18, oxygen saturation room air now 94%. Neck: No apparent JVD. Chest: Decreased air entry at the bases with bilateral fibrotic crackles. S1 variable. P2 appears to be prominent. No S3. No S4. Grade 2/6 diffuse ejection systolic murmur. Abdomen: No obvious mass felt. Extremity at present, no significant pedal edema. 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 Telemetry revealed AFib with controlled rate. However, the patient has short run of irregular wide QRS tachycardia, rate about 130-140, likely aberrant conduction with Jose phenomena. However, cannot rule out possibility of an SVT. LABORATORIES: Today revealed sodium 125, potassium 4.1, BUN 26, creatinine 0.62, magnesium 2.1 with normal AST, ALT, bilirubin. Serum osmolality 271 which is low. ProBNP has decreased from 1605 to 541. ASSESSMENT AND PLAN: New onset atrial fibrillation in the face of bronchopneumonia with underlying around moderate aortic stenosis with preserved systolic function, noncritical coronary artery disease, normal troponin, normal myocardial perfusion done in March 2016, persistent hyponatremia with low serum osmolality likely due to pulmonary pathology, diastolic heart failure which appears to be under control now. I had a long discussion with the patient and her family members including , daughter and granddaughter. Initially I thought of doing PRISCILLA cardioversion as patient has been started on Eliquis for anticoagulation. However, in view of underlying bronchopneumonia and electrolyte imbalances at this point of time, I do not see any jung to do it. The patient is feeling better. At present, we will recommend rate control strategy plus anticoagulation. The patient to see his project specialist, Dr. Wilhelm, as an outpatient to schedule cardioversion down the road. The management of his underlying medical problems I will leave up to the hospitalist team. All the questions were answered. Family and patient understood. At this point of time, cardiology service will sign off. TOTAL TIME SPENT: Today about 40 minutes.
[2017-04-07] MEDS ORDERED: 0.9% Sodium Chloride 500 ML IV ONE (13:30)
--- NOTE | 2017-04-07 15:36 | NUR ---
Decreased BP Pt. blood pressure decreased to 92/43 at 1300. Pt. was dizzy and requested to get back into bed. Nurse administered 500ml bolus of NS. Upon reassessment blood pressure had increased to 92/57. Pt. reports "feeling better, no more dizziness". Pt. was advised not to get out of bed without calling for help because of increase r/o fall with low bp. Bed in low position, call light in pt. reach.
--- NOTE | 2017-04-07 16:29 | PCM.PNMED ---
Subjective Date of Service April 07, 2017 Subjective Patient was seen and examined at bedside today. Patient denies any chest pain, shortness of breath, nausea, vomiting, diarrhea. Overnight events: None Exam Vital Signs Vital Sign - Last Date Time Temp Pulse Resp B/P Pulse Ox O2 Delivery O2 Flow Rate FiO2 04/07/17 14:16 36.4 60 18 92/57 95 Room Air Intake and Output 04/06/17 04/06/17 04/07/17 Cumulative From/Thru 15:00 23:00 07:00 04/04/17 13:37 - 04/07/17 05:23 Intake Total 200 ml 1000 ml 300 ml 2990 ml Output Total 450 ml 650 ml 850 ml 4075 ml Balance -250 ml 350 ml -550 ml -1085 ml Intake Oral 200 ml 450 ml 300 ml 1950 ml IV Total 550 ml 1040 ml Output Urine Total 450 ml 650 ml 850 ml 4075 ml # Bowel Movements 1 0 2 Exam Physical Exam: GEN: Patient was awake, alert, responding appropriately to questions HEENT: Pupils equal round and reactive to light, extraocular eye muscles intact , Neck soft supple, trachea midline, nomocephalic/atraumatic CV: +S1/S2, regular rate and rhythm, systolic murmur auscultated Respiratory: CTAB, no wheezes, rales, rhonchi GI: +bowel sounds x4, soft, compressible, nontender to palpation EXT: no clubbing, cyanosis, edema Neuro: Cranial nerves II-XII grossly intact Psych: mood and affect were appropriate IVs and Medications Medications Reviewed: Medications were reviewed in detail Lab and Diagnostics Result Diagram: 04/07/17 0535 04/07/17 1200 X-Rays, CTs and MRIs PROCEDURE: US VENOUS LEG DUPLEX BILATERAL INDICATIONS: SOB TECHNIQUE: Real-time imaging, as well as color and pulse Doppler interrogation, were performed of the deep veins of both legs from the inguinal ligament to the popliteal fossa. COMPARISON: None. FINDINGS: The deep veins are normally compressible, and free of intraluminal thrombus. Color and pulse Doppler demonstrate normal phasic intravascular flow. There is normal augmentation response to distal compression maneuver. IMPRESSION: No deep venous thrombosis identified within either the left or right lower extremities. Dictated by: Yosef VILLEGAS Interpreted: Jose Luis Campos MD on 04/05/2017 at 16:05 Transcribed by: TOBIAS on 04/05/2017 at 16:05 Approved by: Jose Luis Campos M.D. on 04/05/2017 at 16:33 Assessment & Plan 77-year-old male presents with new onset CHF and A. fib with RVR New onset diastolic CHF (acute present on admission) -Discontinue Lasix 40 mg by mouth daily - Echo: Aortic stenosis with normal EF -Decreased patient's home dose of metoprolol from 50 mg twice a day to 25 mg twice a day secondary to bradycardia (04/04/17) -Cardiology has increased the patient's dose of metoprolol to 25 mg every 8 hours (04/05/17) -Continue Telemetry -TSH 1.2 within normal limits -Hemoglobin A1c 6.1 (prediabetic) -Nutrition consult -Strict I's and O's -ChadVasc score of 4 -Cardiology following (Dr. Reyes) appreciate recommendations A. fib (currently rate controlled) new onset (acute present on admission) -Continue to monitor via telemetry -Change patient's metoprolol to succinate 50 mg twice a day as per recommendation by cardiology -Anticoagulation with eliquis -Possible PRISCILLA on Wednesday or -Nothing by mouth at midnight Hyponatremia possibly secondary to SIADH -Sodium 122 -Fluid restriction to 1.5 L -Continue to monitor -Discontinue chlorthalidone (04/04/17) -500 mL bolus normal saline -1 g sodium chloride tablet -Follow up electrolytes in the morning Shortness of breath secondary to pneumonia -Ultrasound of the lower extremities bilaterally (patient has recently been on a road trip to [place]): Negative for DVT -There are some concerns for bronchiectasis from cardiology however the patient has been afebrile, and has no white count, he does have a procalcitonin that is mildly elevated -We will continue to monitor and treat as medically indicated -Chest CT shows bibasilar pneumonia -Blood cultures pending -Legionella pending -Mycoplasma pending -Viral PCR pending -Rocephin 2 g every 24 hours -Azithromycin 500 mg daily -Continue to monitor Hypertension -Discontinue lisinopril -Discontinue chlorthalidone -Changed to metoprolol succinate 50 mg twice a day -Patient is currently hypotensive - Continue to monitor Hyperlipidemia -Continue simvastatin 40 mg by mouth daily at bedtime -LDL cholesterol is 100 -Total cholesterol is 184 (within normal limits) BPH -Tamsulosin 0.4 mg daily GERD -Continue omeprazole 20 mg daily Diet: Heart healthy DVT prophylaxis: Anticoagulate with Elaquis Code Status: Full code Disposition: The patient is medically complex. The patient's case was discussed with cardiology (Dr. Reyes) today. After the patient's CT scan it was noted that the patient does have a pneumonia and he was started on antibiotics. There is concern that the patient could have legionella mycoplasma pneumonia and this could also be the source of his hyponatremia. The patient had significant hyponatremia today and needed 1 g of sodium chloride tablet plus a 500 bolus cc of fluids. The patient's blood pressure was significantly low along with his sodium so a bolus of 500 mL of fluid was given to him and his lisinopril will be held. Blood pressure parameters have been placed on the patient's metoprolol. The patient still has a fluid restriction of 1.5 L of fluid daily and it is with the hope that once the patient's pneumonia is treated then his sodium will start to correct itself. [employer] Devices: Intermittant Pneumatic CD Pam Herman DO April 07, 2017 16:29
--- NOTE | 2017-04-07 21:32 | NUR ---
Metoprolol evening dose hold BP was low 70s-90/ and NS bolus given today. BP112/60 HR 55-60S around 2119. Dr. Green consulted: Hold Metoprolol 50mg of evening dose.
[2017-04-08] VITALS (11 sets, daily range): BP systolic 104–140; BP diastolic 69–83; PULSE 61–82; RESP 18–20; O2SAT 94–98
[2017-04-08] MEDS: Sodium Chloride LOK Flush 10 mL Syringe IVFLUSH SCH ×3 (00:43→16:46)
--- NOTE | 2017-04-08 04:23 | NUR ---
Respiration Pt states SOB "better", some SOB on exertion. Sometimes cough small clear sputum. Decline prn NEB due to "doesn't work" per pt. Pt on scheduled Abx. Crackles at bilateral posterior LLs, appears slightly improved compared with last night. No wheezes or fraction rubs noted, mild decreased lung sounds bilaterally. Tele: A-fib 60s. 3/6 systolic murmur. BP stable, recent BP104/69. 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 Titrated O 2 1-2L per nc, SPO2 around 95%. Afebrile. Semi-carl position.
[2017-04-08 06:32] LABS: Mean Corpuscular Hemoglobin 31.3 pg (27.0-35.0); Mean Corpuscular Volume 89.7 fL (81-100)
[2017-04-08 06:56] LABS: Magnesium 1.9 mg/dL (1.6-2.6)
[2017-04-08] MEDS: Fluticasone 250 mCg Inhaler INHALATION SCH ×2 (08:21→20:12)
[2017-04-08] MEDS: cefTRIAXone Inj 2,000 MG in Dextrose 5% Minibag Plus 50 ML IV SCH (08:21)
[2017-04-08] MEDS: MeTOProlol XL 50 mg ER24 Tablet PO SCH ×2 (08:22→20:12)
--- NOTE | 2017-04-08 18:08 | NUR ---
Activity: Patient ambulating in hallways several times this shift. Tolerating well, denies pain, shortness of breath, dizziness and lightheadedness.
--- NOTE | 2017-04-08 21:50 | PCM.PNMED ---
Subjective Date of Service April 08, 2017 Subjective The patient is feeling better and has no new complaints. Shortness of breath has improved and respiratory symptoms have improved. Patient is able ambulate into the hallway Exam Vital Signs Vital Sign - Last Date Time Temp Pulse Resp B/P Pulse Ox O2 Delivery O2 Flow Rate FiO2 04/08/17 20:11 36.6 71 20 127/77 94 Room Air 04/08/17 05:46 1.00 Intake and Output 04/07/17 04/07/17 04/08/17 Cumulative From/Thru 15:00 23:00 07:00 04/04/17 13:37 - 04/07/17 21:53 Intake Total 500 ml 3490 ml Output Total 1225 ml 5300 ml Balance -725 ml -1810 ml Intake Oral 500 ml 2450 ml IV Total 1040 ml Output Urine Total 1225 ml 5300 ml # Bowel Movements 1 3 Exam General: Patient is in no apparent distress. HEENT: Head is atraumatic and normocephalic. Eyes: Pupils are equally round and reactive to light and accommodation. Extraocular muscles are intact. Sclera are white, anicteric. Subconjunctival mucosa is pink. Ears and nose are unremarkable. Oropharynx: There is no mucosal lesions, there is no thrush, there is no pharyngitis. Neck: Is supple, there are no nodes, or masses or tenderness. Chest: Is significant for bibasilar rales right greater than left. There are no other adventitious sounds. Heart: Rate, rhythm is regular. There is a grade 2/6 systolic ejection murmur heard best at the left sternal border. There is no rub and there is no gallop. Abdomen: Good bowel sounds are present. Abdomen is soft, nontender, no organomegaly or masses were appreciated. Extremities: Are symmetrical and well perfused. There is no edema, there is no cellulitis, no rash. Neurologic: There are no focal neurological deficits. Cranial nerves II through XII are intact. There are no sensory or motor deficits. Psychiatric: Patients mood is calm and shows no sign of agitation. Genital: Deferred Rectal: Deferred Lab and Diagnostics Result Diagram: 04/08/17 0530 04/08/17 0530 Microbiology Sputum shows normal ellen present. Blood cultures are negative 4 sets. X-Rays, CTs and MRIs PROCEDURE: US VENOUS LEG DUPLEX BILATERAL INDICATIONS: SOB TECHNIQUE: Real-time imaging, as well as color and pulse Doppler interrogation, were performed of the deep veins of both legs from the inguinal ligament to the popliteal fossa. COMPARISON: None. FINDINGS: The deep veins are normally compressible, and free of intraluminal thrombus. Color and pulse Doppler demonstrate normal phasic intravascular flow. There is normal augmentation response to distal compression maneuver. IMPRESSION: No deep venous thrombosis identified within either the left or right lower extremities. Dictated by: Yosef Suarez [facility] Interpreted: Jose Luis Campos MD on 04/05/2017 at 16:05 Transcribed by: TOBIAS on 04/05/2017 at 16:05 Approved by: Jose Luis Campos M.D. on 04/05/2017 at 16:33 Cardiac Echo Impressions Echocardiogram Report Name: BRENDA JO Study Date: 04/05/2017 Height: 67 in Hospital Exam Location: [facility] Weight: 179 lb Gender: Male BSA: 1.9 m2 : 1940 Age: 77 yrs BP: 122/68 mmHg Reason For Study: SOB, New onset Afib Ordering Physician: [facility] Interpretation Summary The patient was in atrial fibrillation with heart rates between 61-83 bpm during the exam (New). The left ventricle is normal in size. The ejection fraction is estimated to be 65-70%. The E/E' ratio is abnormal. The right ventricle is normal size. Right ventricular systolic function is at the lower limits of normal. There is mild mitral regurgitation. Compared to the prior echo study, there has been no change in the severity of mitral regurgitation. No significant mitral valve stenosis. The aortic valve is moderately calcified. Leaflet mobility is moderate to severely reduced. The peak aortic velocity is 3.4 m/sec. The aortic valve mean gradient is 26 mmHg. The peak aortic velocity on the previous exam was 3.3 m/sec. The calculated aortic valve area is 1.9 cm2. Based on all the parameters, overall moderate . Compared to the prior echo study, there has been a decrease in the severity of aortic stenosis. There is trace tricuspid regurgitation. The right ventricular systolic pressure is estimated at 48 mmHg assuming a right atrial pressure of 15 mm Hg. Compared to the prior echo exam, there has been an increase in the severity of pulmonary hypertension. Assessment & Plan Patient is a 77-year-old male presents with new onset CHF and A. fib with RVR New onset acute diastolic CHF (acute present on admission) -Discontinue Lasix 40 mg by mouth daily - Echo: There is moderate Aortic stenosis with normal EF and there is mild mitral regurgitation. -We have decreased patient's home dose of metoprolol from 50 mg twice a day to 25 mg twice a day secondary to bradycardia (04/04/17) -Cardiology has increased the patient's dose of metoprolol to 25 mg every 8 hours (04/05/17) -Continue Telemetry -TSH 1.2 within normal limits -Hemoglobin A1c 6.1 (prediabetic) -Nutrition consult -Strict I's and O's -ChadVasc score of 4 patient started on Eliquis -We appreciate Cardiology following (Dr. Reyes). We appreciate this time and expertise and will follow his recommendations. A. fib (currently rate controlled) new onset (acute present on admission) -Continue to monitor via telemetry -Change patient's metoprolol to succinate 50 mg twice a day as per recommendation by cardiology -Anticoagulation with Eliquis -Now that patient's rate is now well controlled and he is fairly asymptomatic Dr. Reyes recommends having patient follow up with Dr. Salazar for possible cardioversion. 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 -Sodium has improved from 122 to 120 -We will continue fluid restriction to 1.5 L -Continue to monitor -Discontinue chlorthalidone (04/04/17) -500 mL bolus normal saline has been given. -1 g sodium chloride tablet is been given. -Follow up electrolytes in the morning Shortness of breath secondary to pneumonia and congestive heart failure -Ultrasound of the lower extremities bilaterally (patient has recently been on a road trip to [place]): Negative for DVT -There are some concerns for bronchiectasis from cardiology however the patient has been afebrile, and has no white count, he does have a procalcitonin that is mildly elevated -We will continue to monitor and treat as medically indicated -Chest CT shows bibasilar pneumonia -Blood cultures pending -Legionella antigen in the urine is negative -Mycoplasma pending -Viral PCR pending -We will continue Rocephin 2 g every 24 hours -We will continue Azithromycin 500 mg daily -Continue to monitor Hypertension -Discontinue lisinopril -Discontinue chlorthalidone -Changed to metoprolol succinate 50 mg twice a day -Patient is currently normotensive - Continue to monitor Hyperlipidemia -Continue simvastatin 40 mg by mouth daily at bedtime -LDL cholesterol is 100 -Total cholesterol is 184 (within normal limits) BPH -Tamsulosin 0.4 mg daily GERD -Continue omeprazole 20 mg daily Diet: Heart healthy Disposition: The patient is medically complex. The patient's case was discussed with cardiology (Dr. Reyes) again today. We will continue to treat his congestive heart failure, hyponatremia and pneumonia. Will discharge home in stable. Pain Evaluation: Adequate Pain Control GI Prophylaxis: Proton Pump Inhibitor VTE Prophylaxis: Other (The patient is on Eliquis.) VTE Mechanical Devices: Intermittant Pneumatic CD Resuscitation Status: CPR: Attempt Resuscitation Serafin Lim MD April 08, 2017 21:49 given to him and his lisinopril will be held. Blood pressure parameters have been placed on the patient's metoprolol. The patient still has a fluid restriction of 1.5 L of fluid daily and it is with the hope that once the patient's pneumonia is treated then his sodium will start to correct itself. VTE Mechanical Devices: Intermittant Pneumatic CD Serafin Lim MD April 08, 2017 21:49
[2017-04-09] VITALS (7 sets, daily range): BP systolic 113–132; BP diastolic 77–85; PULSE 63–84; RESP 18–20; O2SAT 97–98
--- NOTE | 2017-04-09 00:04 | NUR ---
Respiratory Patient has been on room air, saturations high 90's. CPOx placed while sleeping, observed saturations to dip briefly to 78%, machine alarmed. Patient placed on 1L nasal cannula for night. Will continue to monitor. Patient remains alert and oriented, call light used appropriately, bed alarm on, intentional rounding in place.
[2017-04-09 05:30] LABS: EOSINOPHILS % (AUTO) 4.2 % (0-5); MONOCYTES % (AUTO) 10.8 % (4-12); Mean Corpuscular Hemoglobin 31.2 pg (27.0-35.0); Mean Corpuscular Volume 88.1 fL (81-100); NEUTROPHILS % (AUTO) 51.7 % (40-74); Platelet Count 335 bil/L (150-400)
[2017-04-09 05:55] LABS: Magnesium 1.9 mg/dL (1.6-2.6)
[2017-04-09] MEDS: Pantoprazole 20 mg ER24 Tablet PO SCH (07:00)
[2017-04-09] MEDS ORDERED: 0.9% Sodium Chloride 250 ML ONE (07:32)
[2017-04-09] MEDS: Fluticasone 250 mCg Inhaler INHALATION SCH (07:42)
[2017-04-09] MEDS: cefTRIAXone Inj 2,000 MG in Dextrose 5% Minibag Plus 50 ML IV SCH (07:43)
[2017-04-09] MEDS: MeTOProlol XL 50 mg ER24 Tablet PO SCH (07:43)
[2017-04-09] MEDS: Sodium Chloride LOK Flush 10 mL Syringe IVFLUSH SCH ×2 (07:44)
[2017-04-09] MEDS ORDERED: CEFD300C3 PO (11:36)
[2017-04-09] MEDS ORDERED: APIX5TAB PO (11:36)
[2017-04-09] MEDS ORDERED: ZIT250 PO (11:36)
--- NOTE | 2017-04-09 11:50 | PCM.CONPHA ---
Subjective Reason for Pharmacy Consult: Pharmacotherapy Objective Vital Signs Date Time Temp Pulse Resp B/P Pulse Ox O2 Delivery O2 Flow Rate FiO2 04/09/17 10:21 36.4 65 20 113/80 98 Room Air 04/09/17 09:15 65 20 97 Room Air 04/09/17 08:00 63 04/09/17 06:24 76 04/09/17 05:24 36.1 69 18 132/85 97 Nasal Cannula 1.00 132/84 125/84 04/09/17 00:03 36.4 84 18 121/78 97 Nasal Cannula 1.00 04/08/17 23:44 72 04/08/17 20:11 36.6 71 20 127/77 94 Room Air 04/08/17 20:00 68 18 96 Room Air 04/08/17 16:37 36.6 70 20 114/73 96 Room Air 04/08/17 13:37 36.5 76 117/77 94 Room Air Intake and Output 04/07/17 04/08/17 04/09/17 00:00 00:00 00:00 Intake Total 1200 ml 800 ml 616 ml Output Total 1100 ml 2075 ml 1575 ml Balance 100 ml -1275 ml -959 ml Weight (Kilograms): 81.200 Height (Feet): 5 Height (Inches): 7.00 Test 04/04/17 14:00 04/04/17 15:20 04/04/17 18:42 04/05/17 06:00 Hold Schafer Top Tube Received (Received) Urine Color Yellow (YELLOW) Urine Appearance Clear (CLEAR,HAZY) Urine pH 7.0 (5.0-8.0) Urine Specific [place] 1.015 (1.003-1.035) Urine Protein Negativemg/dL (NEG,TRACE) Urine Glucose (UA) Negativemg/dL (NEGATIVE) Urine Ketones Negativemg/dL (NEGATIVE) Urine Occult Blood Negative (NEGATIVE) Urine Nitrite Negative (NEGATIVE) Urine Bilirubin Negative (NEGATIVE) Urine Urobilinogen Normalmg/dL (NORMAL) Urine Leukocyte Esterase Negative (NEGATIVE) Urine RBC 0-2/hpf (0-2) Urine WBC 0-5/hpf (0-5) Urine Epithelial Cells None/hpf (NONE-MOD) Urine Crystals None seen (NONE SEEN) Urine Bacteria Few/hpf (NONE-FEW) Urine Hyaline Casts None/lpf (NONE) Urine Granular Casts None seen (NONE SEEN) Urine Waxy Casts None seen (NONE SEEN) Urine Red Blood Cell Casts None seen (NONE SEEN) Urine White Blood Cell Casts None seen (NONE SEEN) Urine Mucus None seen (None Seen) Urine Trichomonas None seen (NONE SEEN) Urine Yeast None (NONE SEEN) Urinalysis Comment None Urine Culture Reflexed Not indicated Prothrombin Time 10.5sec (8.1-12.5) Prothromb Time International Ratio 0.98ratio Activated Partial Thromboplast Time 27.5sec (22.8-33.0) Hemoglobin A1c 6.1% (4.8-5.6) Uric Acid 5.8mg/dL (2.6-7.2) Prealbumin 27mg/dL (20-40) Vitamin B12 Level 1034pg/mL (211-946) Folate > 19.9ng/mL (>3.0) Thyroid Stimulating Hormone (TSH) 1.280uIU/mL (0.450-4.500) Phosphorus Level 3.9mg/dL (2.5-4.9) Triglycerides Level 60mg/dL (0-149) Cholesterol Level 184mg/dL (100-199) LDL Cholesterol, Calculated 100.000mg/dL (0-99) VLDL Cholesterol 12.000mg/dL HDL Cholesterol 72mg/dL (>39) Cholesterol/HDL Ratio 2.56 (0.0-4.4) Procalcitonin 0.14ng/mL (0.00-0.08) Test 04/05/17 19:05 04/07/17 05:35 04/07/17 22:30 04/09/17 05:03 Troponin T < 0.010ug/L (0.0-0.011) Osmolality 271 (275-300) Pro-B-Type Natriuretic Peptide 541.0pg/mL (0-486) Urine Legionella pneumophilia Ag Negative (Negative) White Blood Count 8.2th/mm3 (3.8-10.1) Red Blood Count 4.36mil/mm3 (4.40-5.80) Hemoglobin 13.6g/dL (13.8-17.2) Hematocrit 38.4% (41.0-50.0) Mean Corpuscular Volume 88.1fL (81-100) Mean Corpuscular Hemoglobin 31.2pg (27.0-35.0) Mean Corpuscular Hemoglobin Concent 35.4% (32.0-37.0) Red Cell Distribution Width 12.9% (12.3-15.4) Platelet Count 335bil/L (150-400) Neutrophils (%) (Auto) 51.7% (40-74) Lymphocytes (%) (Auto) 31.3% (14-46) Monocytes (%) (Auto) 10.8% (4-12) Eosinophils (%) (Auto) 4.2% (0-5) Basophils (%) (Auto) 1.0% (0-3) Sodium Level 129mEq/L (134-144) Potassium Level 4.0mEq/L (3.5-5.2) Chloride Level 91mEq/L (97-108) Carbon Dioxide Level 23mmol/L (18-29) Blood Urea Nitrogen 19mg/dL (8-27) Creatinine 0.53mg/dL (0.76-1.27) Estimat Glomerular Filtration Rate 161mL/min (>59) Glucose Level 101mg/dL (60-99) Calcium Level 9.1mg/dL (8.5-10.1) Magnesium Level 1.9mg/dL (1.6-2.6) Total Bilirubin 0.6mg/dL (0.0-1.2) Aspartate Amino Transf (AST/SGOT) 20U/L (0-50) Alanine Aminotransferase (ALT/SGPT) 20U/L (0-44) Alkaline Phosphatase 77U/L (25-160) Total Protein 6.2g/dL (6.4-8.4) Albumin 3.3g/dL (3.4-5.0) Assessment/Plan Assessment/Plan [employer] Patient new start on apixaban 5mg po BID for A.Fib. Discharging home possibly today. Discussed medication: * indication * dose * OTC interacting drugs * possible herbal interactions * signs/symptoms of bleeding * patient takes meloxicam prn for back pain. Advised him he will need PCP to order alternative for PRN pain if needs anything stronger than plain tylenol. * on ASA 81mg daily and OK per cardiology Disch. senior media planner double checking his copay/insurance coverage for the drug as it is expensive. Deandra Guevara Pharm.D April 09, 2017 11:50
--- NOTE | 2017-04-09 13:36 | NUR ---
Social Work: Discharge Data: Pt is on day 5 of hospitalization. EMR reviewed. requested METER RECORD CLERK run pt's prescription for eliquis. Pt requested prescription to be sent to [facility] in [place], cost to pt is $24. METER RECORD CLERK notified . Pt will d/c home today via POV. No further D/C planning needed at this time. METER RECORD CLERK will continue to follow if needs arise. Assessment: Pt who is independent at baseline. Plan; Pt will d/c home via POV today. Cost to pt for Eliquis is $24. Pt will d/c home today via POV. No further D/C planning needed at this time. METER RECORD CLERK will continue to follow if needs arise. NTAASHA Fritz
--- NOTE | 2017-04-09 14:25 | PCM.DIMED ---
Discharge Instructions Date of Service April 09, 2017 Dates of Hospitalization April 04, 2017 at 15:57 Discharge Diagnosis Discharge Diagnosis Pneumonia with Granulomatous Disease of the Lung A-fib with RVR Hyponatremia Diet Heart Healthy Activity No restrictions (The patient may return to his usual activities gradually as tolerated.) Call your provider Fever or Chills, Shortness of breath, Bleeding, Chest pain, Vomitting, Excessive diarrhea, Weakness (unilateral), Other Patient Instructions Follow-up Provider: Joshua Adkins MD Follow-up with PCP in: 1 week Provider: Jarad Wilhelm MD Follow-up in: 2 weeks (Follow up for possible Cardioversion) Serafin Lim MD April 09, 2017 14:24
--- NOTE | 2017-04-09 15:32 | NUR ---
Discharge: Patient discharged to home @ approx 1530. IV d/c'd intact, telemetry removed, wafer fab technician notified. Personal belongings sent home with patient. Reviewed three new prescriptions, home medication list, d/c instructions, and follow up appointments. Verbalized understanding. Escorted to main entrance via wheelchair accompanied by patients family and this RN. No apparent distress at time of discharge.
--- NOTE | 2017-04-10 01:05 | PCM.DC.MED ---
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 Reyes of Cardiology Procedures XRay, CTs & MRIs PROCEDURE: US VENOUS LEG DUPLEX BILATERAL INDICATIONS: SOB TECHNIQUE: Real-time imaging, as well as color and pulse Doppler interrogation, were performed of the deep veins of both legs from the inguinal ligament to the popliteal fossa. COMPARISON: None. FINDINGS: The deep veins are normally compressible, and free of intraluminal thrombus. Color and pulse Doppler demonstrate normal phasic intravascular flow. There is normal augmentation response to distal compression maneuver. IMPRESSION: No deep venous thrombosis identified within either the left or right lower extremities. Dictated by: Yosef Suarez [facility] Interpreted: Jose Luis Campos MD on 04/05/2017 at 16:05 Transcribed by: TOBIAS on 04/05/2017 at 16:05 Approved by: Jose Luis Campos M.D. on 04/05/2017 at 16:33 Cardiac Echo Impression Echocardiogram Report Name: BRENDA JO Study Date: 04/05/2017 Height: 67 in Hospital Exam Location: [facility] Weight: 179 lb Gender: Male BSA: 1.9 m2 : 1940 Age: 77 yrs BP: 122/68 mmHg Reason For Study: SOB, New onset Afib Ordering Physician: Performed By: Meri ONTIVREOSIST [facility] Interpretation Summary The patient was in atrial fibrillation with heart rates between 61-83 bpm during the exam (New). The left ventricle is normal in size. The ejection fraction is estimated to be 65-70%. The E/E' ratio is abnormal. The right ventricle is normal size. Right ventricular systolic function is at the lower limits of normal. There is mild mitral regurgitation. Compared to the prior echo study, there has been no change in the severity of mitral regurgitation. No significant mitral valve stenosis. The aortic valve is moderately calcified. Leaflet mobility is moderate to severely reduced. The peak aortic velocity is 3.4 m/sec. The aortic valve mean gradient is 26 mmHg. The peak aortic velocity on the previous exam was 3.3 m/sec. The calculated aortic valve area is 1.9 cm2. Based on all the parameters, overall moderate . Compared to the prior echo study, there has been a decrease in the severity of aortic stenosis. There is trace tricuspid regurgitation. The right ventricular systolic pressure is estimated at 48 mmHg assuming a right atrial pressure of 15 mm Hg. Compared to the prior echo exam, there has been an increase in the severity of pulmonary hypertension. Brief History As per Dr. Herman' is history of present illness: Patient is a 77-year-old male who presents to the emergency room with the complaint of increasing shortness of breath. The patient stated that he went to the urgent care and at that time they found him to be more short of breath and showing signs of A. fib with RVR and CHF. The patient was immediately brought to the emergency room and was found to still be in A. fib but was rate controlled. The patient states that he does not have a history of A. fib nor does he have a history of CHF. The patient states that he has had shortness of breath previously however nothing to this extent. Patient currently complains of some chest pain, shortness of breath but denies any nausea vomiting or diarrhea." The patient was admitted to the hospice service for further evaluation and treatment. Hospital Course Patient is a 77-year-old male presents with new onset CHF and A. fib with RVR New onset acute diastolic CHF (acute present on admission) -Discontinue Lasix 40 mg by mouth daily - Echo: There is moderate Aortic stenosis with normal EF and there is mild mitral regurgitation. -We have decreased patient's home dose of metoprolol from 50 mg twice a day to 25 mg twice a day secondary to bradycardia (04/04/17) -Cardiology has increased the patient's dose of metoprolol to 25 mg every 8 hours (04/05/17) -Continue Telemetry -TSH 1.2 within normal limits -Hemoglobin A1c 6.1 (prediabetic) -Nutrition consult -Strict I's and O's -ChadVasc score of 4 patient started on Eliquis -We appreciate Cardiology following (Dr. Reyes). We appreciate this time and expertise and will follow his recommendations. A. fib (currently rate controlled) new onset (acute present on admission) -Continue to monitor via telemetry -Change patient's metoprolol to succinate 50 mg twice a day as per recommendation by cardiology -Anticoagulation with Eliquis -Now that patient's rate is now well controlled and he is fairly asymptomatic Dr. Reyes recommends having patient follow up with Dr. Salazar for possible cardioversion. 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 -Sodium has improved from 122 to 129 off chlorthalidone -We will continue fluid restriction to 1.5 L -Continue to monitor -Discontinue chlorthalidone (04/04/17) -500 mL bolus normal saline has been given. -1 g sodium chloride tablet is been given. -Follow up electrolytes in the morning Shortness of breath secondary to pneumonia and congestive heart failure -Ultrasound of the lower extremities bilaterally (patient has recently been on a road trip to [place]): Negative for DVT -There are some concerns for bronchiectasis from cardiology however the patient has been afebrile, and has no white count, he does have a procalcitonin that is mildly elevated -We will continue to monitor and treat as medically indicated -Chest CT shows bibasilar pneumonia -Blood cultures pending -Legionella antigen in the urine is negative -Mycoplasma pending -Viral PCR pending -We will continue Rocephin 2 g every 24 hours -We will continue Azithromycin 500 mg daily -Continue to monitor Hypertension -Discontinue lisinopril -Discontinue chlorthalidone -Changed to metoprolol succinate 50 mg twice a day -Patient is currently normotensive - Continue to monitor Hyperlipidemia -Continue simvastatin 40 mg by mouth daily at bedtime -LDL cholesterol is 100 -Total cholesterol is 184 (within normal limits) BPH -Tamsulosin 0.4 mg daily GERD -Continue omeprazole 20 mg daily Diet: Heart healthy Disposition: The patient is medically complex. The patient's case was discussed with cardiology (Dr. Reyes). He recommends that the patient follow- up with Dr. Salazar for possible elective cardioversion. The patient is stable for discharge home today. And he would like to go home as well. Therefore, patient will be discharged home today. Exam Vital Signs (Last) Date Time Temp Pulse Resp B/P Pulse Ox O2 Delivery O2 Flow Rate FiO2 04/09/17 13:58 36.7 79 18 120/77 97 Room Air 04/09/17 05:24 1.00 Exam General: Patient is in no apparent distress. HEENT: Head is atraumatic and normocephalic. Eyes: Pupils are equally round and reactive to light and accommodation. Extraocular muscles are intact. Sclera are white, anicteric. Subconjunctival mucosa is pink. Ears and nose are unremarkable. Oropharynx: There is no mucosal lesions, there is no thrush, there is no pharyngitis. Neck: Is supple, there are no nodes, or masses or tenderness. Chest: Is significant for bibasilar rales right greater than left. However, the breath sounds are much clearer today. There are no other adventitious sounds. Heart: Rate, rhythm is regular. There is a grade 2/6 systolic ejection murmur heard best at the left sternal border. There is no rub and there is no gallop. Abdomen: Good bowel sounds are present. Abdomen is soft, nontender, no organomegaly or masses were appreciated. Extremities: Are symmetrical and well perfused. There is no edema, there is no cellulitis, no rash. Neurologic: There are no focal neurological deficits. Cranial nerves II through XII are intact. There are no sensory or motor deficits. Psychiatric: Patients mood is calm and shows no sign of agitation. Genital: Deferred Rectal: Deferred Test 04/04/17 14:00 04/04/17 15:20 04/04/17 18:42 04/05/17 06:00 Hold Schafer Top Tube Received (Received) Urine Color Yellow (YELLOW) Urine Appearance Clear (CLEAR,HAZY) Urine pH 7.0 (5.0-8.0) Urine Specific [place] 1.015 (1.003-1.035) Urine Protein Negativemg/dL (NEG,TRACE) Urine Glucose (UA) Negativemg/dL (NEGATIVE) Urine Ketones Negativemg/dL (NEGATIVE) Urine Occult Blood Negative (NEGATIVE) Urine Nitrite Negative (NEGATIVE) Urine Bilirubin Negative (NEGATIVE) Urine Urobilinogen Normalmg/dL (NORMAL) Urine Leukocyte Esterase Negative (NEGATIVE) Urine RBC 0-2/hpf (0-2) Urine WBC 0-5/hpf (0-5) Urine Epithelial Cells None/hpf (NONE-MOD) Urine Crystals None seen (NONE SEEN) Urine Bacteria Few/hpf (NONE-FEW) Urine Hyaline Casts None/lpf (NONE) Urine Granular Casts None seen (NONE SEEN) Urine Waxy Casts None seen (NONE SEEN) Urine Red Blood Cell Casts None seen (NONE SEEN) Urine White Blood Cell Casts None seen (NONE SEEN) Urine Mucus None seen (None Seen) Urine Trichomonas None seen (NONE SEEN) Urine Yeast None (NONE SEEN) Urinalysis Comment None Urine Culture Reflexed Not indicated Prothrombin Time 10.5sec (8.1-12.5) Prothromb Time International Ratio 0.98ratio Activated Partial Thromboplast Time 27.5sec (22.8-33.0) Hemoglobin A1c 6.1% (4.8-5.6) Uric Acid 5.8mg/dL (2.6-7.2) Prealbumin 27mg/dL (20-40) Vitamin B12 Level 1034pg/mL (211-946) Folate > 19.9ng/mL (>3.0) Thyroid Stimulating Hormone (TSH) 1.280uIU/mL (0.450-4.500) Phosphorus Level 3.9mg/dL (2.5-4.9) Triglycerides Level 60mg/dL (0-149) Cholesterol Level 184mg/dL (100-199) LDL Cholesterol, Calculated 100.000mg/dL (0-99) VLDL Cholesterol 12.000mg/dL HDL Cholesterol 72mg/dL (>39) Cholesterol/HDL Ratio 2.56 (0.0-4.4) Procalcitonin 0.14ng/mL (0.00-0.08) Test 04/05/17 19:05 04/07/17 05:35 04/07/17 22:30 04/09/17 05:03 Troponin T < 0.010ug/L (0.0-0.011) Osmolality 271 (275-300) Pro-B-Type Natriuretic Peptide 541.0pg/mL (0-486) Urine Legionella pneumophilia Ag Negative (Negative) White Blood Count 8.2th/mm3 (3.8-10.1) Red Blood Count 4.36mil/mm3 (4.40-5.80) Hemoglobin 13.6g/dL (13.8-17.2) Hematocrit 38.4% (41.0-50.0) Mean Corpuscular Volume 88.1fL (81-100) Mean Corpuscular Hemoglobin 31.2pg (27.0-35.0) Mean Corpuscular Hemoglobin Concent 35.4% (32.0-37.0) Red Cell Distribution Width 12.9% (12.3-15.4) Platelet Count 335bil/L (150-400) Neutrophils (%) (Auto) 51.7% (40-74) Lymphocytes (%) (Auto) 31.3% (14-46) Monocytes (%) (Auto) 10.8% (4-12) Eosinophils (%) (Auto) 4.2% (0-5) Basophils (%) (Auto) 1.0% (0-3) Sodium Level 129mEq/L (134-144) Potassium Level 4.0mEq/L (3.5-5.2) Chloride Level 91mEq/L (97-108) Carbon Dioxide Level 23mmol/L (18-29) Blood Urea Nitrogen 19mg/dL (8-27) Creatinine 0.53mg/dL (0.76-1.27) Estimat Glomerular Filtration Rate 161mL/min (>59) Glucose Level 101mg/dL (60-99) Calcium Level 9.1mg/dL (8.5-10.1) Magnesium Level 1.9mg/dL (1.6-2.6) Total Bilirubin 0.6mg/dL (0.0-1.2) Aspartate Amino Transf (AST/SGOT) 20U/L (0-50) Alanine Aminotransferase (ALT/SGPT) 20U/L (0-44) Alkaline Phosphatase 77U/L (25-160) Total Protein 6.2g/dL (6.4-8.4) Albumin 3.3g/dL (3.4-5.0) Microbiology Results Sputum shows normal ellen present. Blood cultures are negative 4 sets. Discharge Medications Discharge Medications Apixaban (Eliquis) 5 Mg Tablet 5 MG PO BID Prescribed by: GRISEL SANON MD Aspirin (Aspirin) 81 Mg Tablet 81 MG PO DAILY (Reported) Azithromycin (Zithromax) 250 Mg Tablet 250 MG PO DAILY Prescribed by: GRISEL SANON MD Cefdinir (Cefdinir) 300 Mg Capsule 300 MG PO BID Prescribed by: GRISEL SANON MD Chlorthalidone (Chlorthalidone) 25 Mg Tablet 25 MG PO DAILY (Reported) Fluticasone Propionate (Flovent HFA 110 mcg) 12 Gm Aer.w.adap 2 PUFFS INHALATION BID (Reported) Lisinopril (Lisinopril) 10 Mg Tablet 10 MG PO DAILY (Reported) Metoprolol Tartrate (Metoprolol Tartrate) 50 Mg Tablet 50 MG PO BID (Reported) Omeprazole (Omeprazole) 20 Mg Capsule.dr 20 MG PO DAILY (Reported) Simvastatin (Simvastatin) 40 Mg Tablet 40 MG PO HS (Reported) As needed Albuterol HFA (Proair HFA) 8.5 Gm Hfa.aer.ad 2 PUFFS INHALATION Q2H PRN PRN For Wheezing (Reported) Miscellaneous Medications ([marijuana]) (Reported) Saw/Vit E/Sod Radha/Lyc/Beta/Pyg (Prostate Health Caplet) 1 Each Tablet 1 EACH PO (Reported) Silodosin (Rapaflo) 4 Mg Capsule 4 MG PO (Reported) Followup Plan Disposition: Patient is being discharged home. Discharge Diet: Heart Healthy Discharge Activity: No restrictions (The patient may return to his usual activities gradually as tolerated.) Follow-up Provider: Joshua Adkins MD Follow-up with PCP in: 1 week Provider: Jarad Wilhelm MD Follow-up in: 2 weeks (Follow up for possible Cardioversion) Time spent Time spent on discharging this patient was greater than 35 minutes, over half of which was involved in counseling and coordination of care. Serafin Sanon MD April 10, 2017 01:05
[2017-05-13] MEDS ORDERED: MULT1CAP33 PO (16:52)
[2017-05-13] MEDS ORDERED: CHOL500011 PO (16:52)
[2017-05-13] MEDS ORDERED: NITR0.4T SL (16:52)
== END 2017-04-09 15:38 | disposition home or self-care (01) | DRG 291 ==
LOC: SED 13:23 → MPC 15:57
PROVIDERS: ADMIT Neuromusculoskeletal Medicine & OMM; ATTEND Neuromusculoskeletal Medicine & OMM
DX: I50.31 Acute diastolic (congestive) heart failure (principal); J18.9 Pneumonia, unspecified organism; E22.2 Syndrome of inappropriate secretion of antidiuretic hormone; I48.91 Unspecified atrial fibrillation; Z79.01 Long term (current) use of anticoagulants; Z87.891 Personal history of nicotine dependence; Z51.5 Encounter for palliative care; I10 Essential (primary) hypertension; E78.5 Hyperlipidemia, unspecified; N40.0 Benign prostatic hyperplasia without lower urinary tract symptoms; K21.9 Gastro-esophageal reflux disease without esophagitis; D71 Functional disorders of polymorphonuclear neutrophils

== ENCOUNTER 2017-05-14 03:45 | Day surgery (SDC) | payer MEDICARE, OTHER ==
[~2017-05-14] VITALS: Ht 170.2 cm; Wt 82.0 kg
[2017-05-14] VITALS (7 sets, daily range): BP systolic 102–136; BP diastolic 57–92; PULSE 54–74; RESP 16; O2SAT 96–98
[~2017-05-14 03:45] MED LIST changes: +ALBU8.5H2 INHALATION; +APIX5TAB PO; -ASPI-973 PO; +CHOL500011 PO; +FLUT12AE8 INHALATION; -GLUC500T12 PO; +HYG25 PO; +METO50TA3 PO; +MULT1CAP33 PO; +NITR0.4T SL
[2017-05-14] MEDS ORDERED: 0.9% Sodium Chloride 1,000 ML IV SCH (08:10)
[2017-05-14] MEDS ORDERED: Methohexital 10 mg/mL 50 mL Inj IV ONE (10:00)
[2017-05-14 10:52] LABS: BASOPHILS % (AUTO) 0.5 % (0-3); MONOCYTES % (AUTO) 7.6 % (4-12); Mean Corpuscular Hemoglobin 31.3 pg (27.0-35.0); Mean Corpuscular Volume 90.5 fL (81-100); NEUTROPHILS % (AUTO) 64.2 % (40-74); Platelet Count 336 bil/L (150-400)
[2017-05-14] MEDS ORDERED: Atropine 1 mg/10 mL (Code) Syringe ONE (10:57)
[2017-05-31] MEDS ORDERED: VITA100T4 PO (14:35)
[2017-05-31] MEDS ORDERED: SODI1TAB PO (14:35)
--- NOTE | 2017-06-22 10:35 | DI96 ---
[address] [address] PERIPHERAL CATHETERIZATION/INTERVENTION REPORT PATIENT: BRENDA JO : 1940 MR#: [id number] ADMIT: 05/14/2017 JOB ID: [id number] DATE: 05/14/2017 PROCEDURE: Cardioversion. INDICATION: Atrial fibrillation. DESCRIPTION OF PROCEDURE: The patient was successfully cardioverted. He required 2 shocks, and 150 joules synchronized biphasic shock converted him into a sinus rhythm. The patient is advised to stay on anticoagulation. Follow up in the clinic.
== END 2017-05-14 23:59 | disposition home or self-care (01) ==
LOC: SOUO 03:45
PROVIDERS: ATTEND Internal Medicine Cardiovascular Disease
DX: I48.1 Persistent atrial fibrillation (principal); I10 Essential (primary) hypertension; I35.0 Nonrheumatic aortic (valve) stenosis; K21.9 Gastro-esophageal reflux disease without esophagitis; N40.1 Benign prostatic hyperplasia with lower urinary tract symptoms; Z79.01 Long term (current) use of anticoagulants; Z79.82 Long term (current) use of aspirin
CPT/HCPCS: 36415; 80048; 85025; 85610; 92960; 93005; 99152; J2250; J7030

== ENCOUNTER 2017-05-16 13:28 | Emergency (ER) | payer MEDICARE, OTHER ==
[~2017-05-16] VITALS: Ht 170.2 cm; Wt 81.8 kg
[2017-05-16 13:31] VITALS: BP 125/84; PULSE 45; RESP 20; O2SAT 98
--- NOTE | 2017-05-16 14:18 | ED.REPORT ---
HPI-Chest Pain 40 and Over Date of Service May 16, 2017 ED Provider: History of Present Illness: 77-year-old patient here for irregular heartbeat. This started at 11 AM today. At the time he had some central chest pressure and he was feeling lightheaded with movement, both of these have resolved. He was lightheaded just when getting to the emergency room here lying flat it is better. He was cardioverted here at [facility] ER 2 days ago. It was successful, but symptoms returned this morning. He has known A. fib since March 2017 at that time is also diagnosed with CHF. He takes Eloquis as his anticoagulant. Nursing Notes Stated Complaint: UNEVEN HEART RATE Chief Complaint: Dysrhythmia/Cardiac Nursing Notes Reviewed: Yes Allergies: Coded Allergies: No Known Drug Allergies (Verified Allergy, Unknown, 05/16/17) Scheduled Apixaban (Eliquis) 5 Mg Tablet 5 MG PO BID Chlorthalidone (Chlorthalidone) 25 Mg Tablet 25 MG PO DAILY Cholecalciferol (Vitamin D3) (Vitamin D3) 5,000 Unit Tablet 5,000 UNIT PO DAILY Fluticasone Propionate (Flovent HFA 110 mcg) 12 Gm Aer.w.adap 2 PUFFS INHALATION BID Lisinopril (Lisinopril) 10 Mg Tablet 10 MG PO DAILY Metoprolol Tartrate (Metoprolol Tartrate) 50 Mg Tablet 50 MG PO BID Omeprazole (Omeprazole) 20 Mg Capsule.dr 20 MG PO DAILY Simvastatin (Simvastatin) 40 Mg Tablet 40 MG PO HS Scheduled PRN Albuterol HFA (Proair HFA) 8.5 Gm Hfa.aer.ad 2 PUFFS INHALATION Q2H PRN PRN For Wheezing Nitroglycerin SL (Nitrostat) 0.4 Mg Tab.subl 0.4 MG SL Q5MIN PRN PRN For Chest Pain Miscellaneous Medications ([marijuana]) Multivitamin (Multivitamins) 1 Each Capsule 1 EACH PO Saw/Vit E/Sod Radha/Lyc/Beta/Pyg (Prostate Health Caplet) 1 Each Tablet 1 EACH PO Silodosin (Rapaflo) 4 Mg Capsule 4 MG PO General Time Seen by MD: 14:12 Chief Complaint Chest pain, Chest pressure Hx Obtained From: Patient Arrived By: Walk-in Sudden in Onset?: Yes Onset Occurred: Just prior to arrival Location: : Substernal Quality: Pressure Radiation: : Does not radiate Severity: Current: No pain currently Severity: Maximum: Moderate Recent Healthcare: Recent doctor visit, Recent hospitalization, Previous diagnosis Similar Sx Previous: Yes Risk Factors Risk Notes: afib, chf Past Medical History Past Medical History Notes: afib, chf Past Medical History Pulmonary function tests for shortness of breath September 2016 revealed a very mild restrictive pattern, with a very mild reduction diffusing capacity Hypertension Hyperlipidemia GERD History of dysphagia history of anxiety Nonsustained ventricular tachycardia History of paroxysmal SVT Past Surgical History Endoscopy mild gastritis April 2016 Knee surgery Hernia repair Smoking History Former Smoker Social History Drug Use: THC Ambulatory Status Independent Review of Systems Review of Systems Note: Irregular heartbeat, chest pressure, lightheadedness Constitutional: Denies: Chills, Fatigue, Fever Respiratory: Reports: Dyspnea on exertion, Denies: Non-productive cough Cardiovascular: Reports: Chest pain, Dyspnea on exertion GI: Denies: Abdominal pain, Nausea, Vomiting Musculoskeletal: Denies: Back pain Complete sys rev & neg: except as marked. Physical Exam Initial Vital Signs Vital Signs (First) Date Time Temp Pulse Resp B/P Pulse Ox O2 Delivery O2 Flow Rate FiO2 05/16/17 13:31 36.8 45 20 125/84 98 Room Air Initial VS: Reviewed, Vital signs normal General/Constitutional: Awake, Alert, No acute distress, Well appearing Respiratory / Chest: Breath sounds NL, Breath sounds = bilat, No respiratory distress, No rales, No rhonchi, No wheezing, No stridor, No chest tenderness Cardiovascular: No gallop, No rubs, Pulses = bilaterally Heart Rate / Rhythm: Positive: Irreg irregular rhythm, Irregular rhythm Heart Sounds / Murmur: Positive: Systolic murmur present.. (III/) no edema Abdomen: Soft, Non-tender, McBurney's non-tender, No guarding, No rebound, BS normoactive, No distention, No hernia, No palpable mass Skin: Color NL, Warm, Dry, Turgor NL Interpretation & Diagnostics Lab Results Interpretation Result Diagram: 05/16/17 1345 05/16/17 1345 Test 05/16/17 13:45 05/16/17 14:54 White Blood Count 11.8th/mm3 (3.8-10.1) Red Blood Count 4.27mil/mm3 (4.40-5.80) Hemoglobin 13.5g/dL (13.8-17.2) Hematocrit 38.6% (41.0-50.0) Mean Corpuscular Volume 90.4fL (81-100) Mean Corpuscular Hemoglobin 31.6pg (27.0-35.0) Mean Corpuscular Hemoglobin Concent 35.0% (32.0-37.0) Red Cell Distribution Width 13.2% (12.3-15.4) Platelet Count 329bil/L (150-400) Neutrophils (%) (Auto) 70.4% (40-74) Lymphocytes (%) (Auto) 19.5% (14-46) Monocytes (%) (Auto) 8.1% (4-12) Eosinophils (%) (Auto) 1.0% (0-5) Basophils (%) (Auto) 0.3% (0-3) Sodium Level 134mEq/L (134-144) Potassium Level 3.4mEq/L (3.5-5.2) Chloride Level 94mEq/L (97-108) Carbon Dioxide Level 23mmol/L (18-29) Blood Urea Nitrogen 15mg/dL (8-27) Creatinine 0.77mg/dL (0.76-1.27) Estimat Glomerular Filtration Rate 104mL/min (>59) Glucose Level 179mg/dL (60-99) Calcium Level 9.7mg/dL (8.5-10.1) Magnesium Level 1.8mg/dL (1.6-2.6) Total Bilirubin 0.6mg/dL (0.0-1.2) Aspartate Amino Transf (AST/SGOT) 22U/L (0-50) Alanine Aminotransferase (ALT/SGPT) 17U/L (0-44) Alkaline Phosphatase 85U/L (25-160) Troponin T < 0.010ug/L (0.0-0.011) Total Protein 7.3g/dL (6.4-8.4) Albumin 4.1g/dL (3.4-5.0) Hold Schafer Top Tube Received (Received) Prothrombin Time 10.3sec (8.1-12.5) Prothromb Time International Ratio 0.96ratio X-Ray Chest Interpretation Chest Xray Interpretation: X-RAY CHEST ONE VIEW, PORTABLE ([id number]) INDICATIONS: Chest pain. TECHNIQUE: One view of the chest was acquired. COMPARISON: [facility], CR, XR CHEST 2VW, 10/13/2016, 9:34. [facility], CT, CT CHEST W CON, 04/06/2017, 17:27. [facility], CR, XR CHEST 1VW (PORTABLE), 04/04/2017, 13:59. FINDINGS: Surgical changes and devices: None. Lungs and pleura: Small lung nodules are noted in the left lower lobe. No pleural effusions or pneumothorax. Chronic interstitial prominence appears unchanged. Mediastinum: Mediastinal contours appear normal. Heart size is normal. Bones and chest wall: No suspicious bony lesions. Overlying soft tissues appear unremarkable. IMPRESSION: 1. No acute cardiopulmonary disease. 2. Chronic interstitial thickening is unchanged. 3. Left lower lobe lung nodules. Multiple nodules are seen on the comparison chest CT dated 04/06/2017. Recommend CT followup in 3 months. Re-Eval/Medical Decision Med Decision/Clinical Course Patient had an episode of a heart rate in the 120s at that time felt lightheaded. I got in the room heart rate was between 70s and 90s and the lightheadedness has has basically resolved. Still awaiting labs and treatment. Prior to discharge vitals stable heart rate in the 70s patient is demented. 1545 - report to dr medrano, creative services director consulted Dr Cole states no cardioversion today. f/u with cardio, call wednesday. pt asymptomatic at this time. [address] tested. Very slight amount of lightheadedness with ambulating. Patient states he feels comfortable going home he is not dizzy, no chest pain. Discussed that he can return at any point if he feels uncomfortable at home or get symptomatic activity. he understands and will return as needed Discharge & Departure Shift Change Sign-Out Laboratory Evaluation: Lab evaluation discussed Imaging Studies: Imaging discussed Procedures: Results discussed Response to Therapy: Improved Primary Impression: Congestive heart failure Congestive heart failure type: unspecified congestive heart failure type Congestive heart failure chronicity: chronic Qualified Code: I50.9 - Heart failure, unspecified Additional Impression: A-fib Atrial fibrillation type: paroxysmal Qualified Code: I48.0 - Paroxysmal atrial fibrillation Disposition: Home Discharge Condition All VS Reviewed: Yes Condition: Stable Patient Instructions: A-fib (Atrial Fibrillation) (ED) Additional Instructions: Follow-up with your creative services director, call for next available appointment tomorrow morning. If you feel short of breath, chest pain, lightheadedness nausea or vomiting or any concerning symptoms return immediately to the emergency room. Otherwise take your usual home meds Referrals: Joshua Adkins MD (PCP) EDSupervising Provider for APC: Niraj Medrano MD copies to: Niraj Medrano MD; Jarad Wilhelm MD, Linnea K ARNP May 16, 2017 14:18
[2017-05-16 14:22] LABS: BASOPHILS % (AUTO) 0.3 % (0-3); MONOCYTES % (AUTO) 8.1 % (4-12); Mean Corpuscular Hemoglobin 31.6 pg (27.0-35.0); Mean Corpuscular Volume 90.4 fL (81-100); NEUTROPHILS % (AUTO) 70.4 % (40-74); Platelet Count 329 bil/L (150-400)
--- NOTE | 2017-05-16 14:27 | DRSVH ---
PROCEDURE: X-RAY CHEST ONE VIEW, PORTABLE ([id number]) INDICATIONS: Chest pain. TECHNIQUE: One view of the chest was acquired. COMPARISON: [facility], CR, XR CHEST 2VW, 10/13/2016, 9:34. [facility], CT , CT CHEST W CON, 04/06/2017, 17:27. [facility], CR, XR CHEST 1VW (PORTABLE), 04/04/2017, 13:59. FINDINGS: Surgical changes and devices: None. Lungs and pleura: Small lung nodules are noted in the left lower lobe. No pleural effusions or pneum othorax. Chronic interstitial prominence appears unchanged. Mediastinum: Mediastinal contours appear normal. Heart size is normal. Bones and chest wall: No suspicious bony lesions. Overlying soft tissues appear unremarkable. IMPRESSION: 1. No acute cardiopulmonary disease. 2. Chronic interstitial thickening is unchanged. 3. Left lower lobe lung nodules. Multiple nodules are seen on the comparison chest CT dated 04/06/[address] followup in 3 months. Dictated by: Mag Jade M.D. on 05/16/2017 at 14:21 Approved by: Mag Jade M.D. on 05/16/2017 at 14:25
[2017-05-16 14:36] LABS: TROPONIN T < 0.010 ug/L (0.0-0.011)
[2017-05-16 14:44] LABS: Magnesium 1.8 mg/dL (1.6-2.6)
[2017-05-16 15:16] LABS: INR 0.96 ratio
[2017-05-16 15:58] VITALS: BP 134/74; PULSE 77; RESP 18; O2SAT 98
[2017-05-16 17:12] VITALS: BP 142/59; PULSE 81; RESP 19; O2SAT 96
[2017-05-17] MEDS ORDERED: FURO40TA4 PO (14:22)
[2017-05-31] MEDS ORDERED: SODI1TAB PO (14:35)
[2017-05-31] MEDS ORDERED: VITA100T4 PO (14:35)
== END 2017-05-16 17:13 | disposition home or self-care (01) ==
LOC: SED 13:28
DX: I11.0 Hypertensive heart disease with heart failure (principal); I50.9 Heart failure, unspecified; I48.0 Paroxysmal atrial fibrillation; E78.5 Hyperlipidemia, unspecified; K21.9 Gastro-esophageal reflux disease without esophagitis; Z87.891 Personal history of nicotine dependence; Z79.899 Other long term (current) drug therapy

== ENCOUNTER 2017-05-17 09:47 | Emergency (ER) | payer MEDICARE, OTHER ==
[~2017-05-17] VITALS: Ht 170.2 cm; Wt 81.8 kg
[2017-05-17 09:51] VITALS: BP 144/92; PULSE 87; RESP 17; O2SAT 97
--- NOTE | 2017-05-17 10:16 | ED.REPORT ---
HPI-Chest Pain 40 and Over Date of Service May 17, 2017 ED Provider: Kosta Mcgowan MD The pt is a 77 y/o male w/ a hx of HTN and hyperlipidemia presenting to the ED complaining of shortness of breath. The SOB initially began a year ago and affects him both at rest and w/ exertion. He is also experiencing chest pain that is dull, aching, continuous, w/o radiation, w/ nothing helping reduce his symptoms. The pt reports "feeling more of everything" since his cardioversion, which was performed 4 days ago. The pt also describes having a mild headache, diaphoresis last night, HR being "all over the place", knee pain, and a higher BP in the last 24 hours. Denies peripheral edema, or changes in weight. The pt had a chest x-ray done yesterday which showed no acute disease and saw Dr. Wilhelm yesterday. Nursing Notes Stated Complaint: POSS A-FIB Chief Complaint: Chest Pain Nursing Notes Reviewed: Yes (Codon Devices not reconciled - on Eliquis) Allergies: Coded Allergies: No Known Drug Allergies (Verified Allergy, Unknown, 05/16/17) Scheduled Apixaban (Eliquis) 5 Mg Tablet 5 MG PO BID Chlorthalidone (Chlorthalidone) 25 Mg Tablet 25 MG PO DAILY Cholecalciferol (Vitamin D3) (Vitamin D3) 5,000 Unit Tablet 5,000 UNIT PO DAILY Fluticasone Propionate (Flovent HFA 110 mcg) 12 Gm Aer.w.adap 2 PUFFS INHALATION BID Furosemide (Furosemide) 40 Mg Tablet 40 MG PO DAILY Lisinopril (Lisinopril) 10 Mg Tablet 10 MG PO DAILY Metoprolol Tartrate (Metoprolol Tartrate) 50 Mg Tablet 50 MG PO BID Omeprazole (Omeprazole) 20 Mg Capsule.dr 20 MG PO DAILY Simvastatin (Simvastatin) 40 Mg Tablet 40 MG PO HS Scheduled PRN Albuterol HFA (Proair HFA) 8.5 Gm Hfa.aer.ad 2 PUFFS INHALATION Q2H PRN PRN For Wheezing Nitroglycerin SL (Nitrostat) 0.4 Mg Tab.subl 0.4 MG SL Q5MIN PRN PRN For Chest Pain Miscellaneous Medications ([marijuana]) Multivitamin (Multivitamins) 1 Each Capsule 1 EACH PO Saw/Vit E/Sod Radha/Lyc/Beta/Pyg (Prostate Health Caplet) 1 Each Tablet 1 EACH PO Silodosin (Rapaflo) 4 Mg Capsule 4 MG PO General Time Seen by MD: 09:56 Chief Complaint Chest pain, Shortness of breath Hx Obtained From: Patient, Spouse Sudden in Onset?: No Onset Occurred: 3 days ago Symptom Duration: Since onset Recent Healthcare: Recent doctor visit, Recent testing, Previous diagnosis, Prior workup Similar Sx Previous: Yes (Wednesday cardioversion, seen yest in ED) Past Medical History Past Medical History Notes: Seen yesterday in ED, cardioverted a few days ago Past Medical History Pulmonary function tests for shortness of breath September 2016 revealed a very mild restrictive pattern, with a very mild reduction diffusing capacity Hypertension Hyperlipidemia GERD History of dysphagia history of anxiety Nonsustained ventricular tachycardia History of paroxysmal SVT h/o atrial fibrillation Anticoagulated Past Surgical History Endoscopy mild gastritis April 2016 Knee surgery Hernia repair Smoking History Former Smoker Social History Drug Use: THC Ambulatory Status Independent Review of Systems Denies changes in weight Respiratory: Reports: Shortness of breath Cardiovascular: Reports: Chest pain, Denies: Edema Musculoskeletal: Reports: Joint pain (Knees) Skin: Reports Diaphoresis Neurologic: Reports: Headache Complete sys rev & neg: except as marked. Physical Exam Initial Vital Signs Vital Signs (First) Date Time Temp Pulse Resp B/P Pulse Ox O2 Delivery O2 Flow Rate FiO2 05/17/17 09:51 36.4 87 17 144/92 97 Room Air Initial VS: Reviewed, Vital signs normal General/Constitutional: Awake, Alert, No acute distress Respiratory / Chest: Atraumatic, Breath sounds NL, Breath sounds = bilat Does not appear visibly dyspneic Cardiovascular: Peripheral circulation NL Heart Sounds / Murmur: Positive: Murmur present... (Chronic II/) Rate controlled A-fib No JVD Abdomen: Atraumatic, Soft, Non-tender Neck: Atraumatic, Supple, Full range of motion Back: Atraumatic, Full range of motion Lower Extremity / Pelvis / MS: Atraumatic, Inspection NL, Full range of motion Skin: Atraumatic, Color NL, No rash, Warm, Dry Neurologic: Oriented X3, Speech NL Psychiatric: Affect NL, Mood NL Interpretation & Diagnostics Interpretation & Diagnostics: Chest x-rays performed yesterday, no acute disease-not repeated today Lab Results Interpretation Result Diagram: 05/17/17 1020 05/17/17 1020 Test 05/17/17 10:20 05/17/17 11:15 White Blood Count 12.1th/mm3 (3.8-10.1) Red Blood Count 4.65mil/mm3 (4.40-5.80) Hemoglobin 14.5g/dL (13.8-17.2) Hematocrit 41.9% (41.0-50.0) Mean Corpuscular Volume 90.1fL (81-100) Mean Corpuscular Hemoglobin 31.2pg (27.0-35.0) Mean Corpuscular Hemoglobin Concent 34.6% (32.0-37.0) Red Cell Distribution Width 13.3% (12.3-15.4) Platelet Count 341bil/L (150-400) Neutrophils (%) (Auto) 67.9% (40-74) Lymphocytes (%) (Auto) 21.2% (14-46) Monocytes (%) (Auto) 8.7% (4-12) Eosinophils (%) (Auto) 1.3% (0-5) Basophils (%) (Auto) 0.3% (0-3) Sodium Level 136mEq/L (134-144) Potassium Level 3.5mEq/L (3.5-5.2) Chloride Level 94mEq/L (97-108) Carbon Dioxide Level 24mmol/L (18-29) Blood Urea Nitrogen 13mg/dL (8-27) Creatinine 0.62mg/dL (0.76-1.27) Estimat Glomerular Filtration Rate 134mL/min (>59) Glucose Level 125mg/dL (60-99) Calcium Level 9.9mg/dL (8.5-10.1) Magnesium Level 1.8mg/dL (1.6-2.6) Total Bilirubin 0.7mg/dL (0.0-1.2) Aspartate Amino Transf (AST/SGOT) 27U/L (0-50) Alanine Aminotransferase (ALT/SGPT) 19U/L (0-44) Alkaline Phosphatase 91U/L (25-160) Troponin T 0.010ug/L (0.0-0.011) Pro-B-Type Natriuretic Peptide 1152pg/mL (0-486) Total Protein 7.6g/dL (6.4-8.4) Albumin 4.2g/dL (3.4-5.0) Hold Urine Received (Received) Lab Results Interpretation: CBC trace leukocytosis CMP normal ProBNP marginally elevated, difficult to interpret in the setting of A. fib and cardioversion Troponin negative (as well as yesterday's troponin) ECG Interpretation ECG Interpretation: Rate controlled A-fib Rate 70 Time: 10:38 Interpreted by: ED physician Re-Eval/Medical Decision Med Decision/Clinical Course This is a 77-year-old male who presents complaining of persistent chest discomfort, persistent shortness of breath, palpitations and feeling poorly. Patient is status post cardioversion on Wednesday by Dr. Vasques, was seen yesterday recurrent atrial fibrillation V discussed with Patricia of the plan for cardiology follow-up today in the office. The patient continued to feel poorly, he developed some chest soreness, palpitations and shortness of breath is still bothering him since this and he did not feel that he can wait till the cardiology office call back, so he presented to the ED. On exam he does not appear visibly dyspneic. He is not rate controlled atrial fibrillation here, he is anticoagulated on Elqiuis. He has no peripheral edema , and no Rales or JVD on clinical exam. No acute abnormalities were appreciated on EKG. Lab work was normal except for an elevated BNP - difficult to interpret in the setting of atrial fibrillation and recent cardioversion. Patient is no visible david in the chest from the cardioversion itself. Chest x-ray is negative for kelsey heart failure clear acute abnormality. Dr. Wilhelm cardiology was consulted and came and saw the patient. He believes the chest discomfort is secondary to the cardioversion process itself, and there may be a low-level congestive heart failure contributing to shortness of breath, and the plan is discharged to home on continued furosemide 40 mg daily- and will follow-up in the cardiology office as outpatient cardiac catheterization is still planned. She was comfortable with this. Dr. Feldman like the patient be on 40 mg Lasix daily and I have written initial prescription for this. The patient is discharged in stable condition. Return and routine precautions reviewed. Source of Hx: Old records Time of Eval: 13:52 Re-Evaluation/Progress Note: Pt rechecked. Informed pt of plan for treatment. Pt understands and agrees with plan for treatment. F/U instructions and RTER warnings given. All questions addressed. Consultation : Referral / Consult Name: Jarad Wilhelm MD Consulted With: Cardiology Call Returned at: 10:52 Note: Dr Wilhelm came and saw the patient in the emergency department. He has to BMP be added. After review with the patient, thinks the soreness if the chest is secondary to the cardioversion itself. The patient's continued Ahlquist, and he would like to add 40 mg of Lasix daily-and have the patient follow-up with him in clinic, as outpatient cardiac catheterization as still being pursued Discharge & Departure Primary Impression: Non-cardiac chest pain Additional Impressions: Shortness of breath Atrial fibrillation Atrial fibrillation type: unspecified Qualified Code: I48.91 - Unspecified atrial fibrillation Congestive heart failure (CHF) Congestive heart failure type: unspecified congestive heart failure type Congestive heart failure chronicity: unspecified congestive heart failure chronicity Qualified Code: I50.9 - Heart failure, unspecified Disposition: Home Discharge Condition All VS Reviewed: Yes Condition: Stable Additional Instructions: 1. You were seen by the business process analyst Dr. Wilhelm. 2. The chest soreness is from the cardioversion this past Wednesday, and should improve with time. 3. To help your breathing, take furosemide 40mg once a day as there may be a bit of trace "CHF" contributing to your symptoms. 4. Keep the appointment with Dr. Wilhelm for the catheterization. 5. Continue your other medications. 6. Return again if new or worsening symptoms. Referrals: Joshua Adkins MD (PCP) Scribe Attestation Portions of this note were transcribed by [place]. I, Dr. Mcgowan personally performed the history, physical exam and medical decision-making; I reviewed and confirmed the accuracy of the information in the transcribed note. Signed by : Devan Mei, 05/17/17 and 1530. copies to: Joshua Adkins MD, Matthew F MD May 17, 2017 10:16 [place] May 17, 2017 15:19
[2017-05-17 10:30] VITALS: BP 160/88; PULSE 79; RESP 21; O2SAT 98
[2017-05-17 10:33] LABS: BASOPHILS % (AUTO) 0.3 % (0-3); EOSINOPHILS % (AUTO) 1.3 % (0-5); MONOCYTES % (AUTO) 8.7 % (4-12); Mean Corpuscular Hemoglobin 31.2 pg (27.0-35.0); Mean Corpuscular Volume 90.1 fL (81-100); NEUTROPHILS % (AUTO) 67.9 % (40-74); Platelet Count 341 bil/L (150-400)
[2017-05-17 10:54] LABS: TROPONIN T 0.01 ug/L (0.0-0.011)
[2017-05-17 11:05] LABS: Magnesium 1.8 mg/dL (1.6-2.6)
[2017-05-17 11:33] VITALS: BP 132/67; PULSE 88; RESP 17; O2SAT 96
[2017-05-17] MEDS ORDERED: FURO40TA4 PO (14:22)
[2017-05-17 14:39] VITALS: BP 106/69; PULSE 96; RESP 24; O2SAT 96
--- NOTE | 2017-05-17 18:06 | CONS ---
[address] [address] CONSULTATION REPORT PATIENT: BRENDA JO : 1940 MR#: [id number] ADMIT: 05/17/2017 JOB ID: [id number] DATE OF SERVICE: 05/17/2017 CHIEF COMPLAINT: Chest discomfort. CONSULTATION REQUESTED BY: Kosta Mcgowan MD HISTORY OF PRESENT ILLNESS: This patient has known history of atrial fibrillation. He underwent cardioversion last Wednesday. Since then, he has had two ED visits with chest discomfort. This patient is well known to me. The patient states the chest discomfort is in the front part of his chest. Upon asking leading questions, he does admit that it feels like a smart or a burning sensation. It is dull, it is nonexertional. He also gives history of orthopnea for the last six months or so. He has not been taking any diuretics. He is scheduled for heart catheterization on June 01. PAST MEDICAL HISTORY: 1. Atrial fibrillation. 2. BPH. 3. Aortic stenosis. 4. Longstanding history of exertional dyspnea. 5. Coronary calcification with nonobstructive coronary artery disease based on a catheterization in 2008. The reader is referred to my office note from April 28 for further details with regards to past medical history, family history, etc. PHYSICAL EXAMINATION: Today, he is comfortable. He has got erythema at the front of his chest as well as in the back. He has got bibasilar crackles. Heart sounds: S1, S2 are irregular. There is a 2 to 3/6 harsh ejection systolic murmur. RN DOCUMENT IMPROVEMENT: Alert and oriented. EKG: Atrial fibrillation with no acute ischemic changes. Troponin negative. ASSESSMENT AND PLAN: The chest discomfort the patient describes is atypical and is likely due to DC cardioversion. I have reassured the patient. I have discussed the patient with Dr. Mcgowan. The patient will be started on furosemide 40 mg daily and discharged home. I will see him on June 01 as planned.
[2017-05-31] MEDS ORDERED: VITA100T4 PO (14:35)
[2017-05-31] MEDS ORDERED: SODI1TAB PO (14:35)
== END 2017-05-17 14:47 ==
LOC: SED 09:47
DX: I11.0 Hypertensive heart disease with heart failure (principal); I50.9 Heart failure, unspecified; I48.91 Unspecified atrial fibrillation; E78.5 Hyperlipidemia, unspecified; K21.9 Gastro-esophageal reflux disease without esophagitis; Z87.891 Personal history of nicotine dependence

== ENCOUNTER 2017-06-01 00:27 | Day surgery (SDC) | payer MEDICARE, OTHER ==
[2017-06-01] VITALS (11 sets, daily range): BP systolic 103–129; BP diastolic 56–83; PULSE 65–82; RESP 12–24; O2SAT 95–96
[~2017-06-01] VITALS: Ht 170.2 cm; Wt 85.7 kg
[~2017-06-01 00:27] MED LIST changes: +FURO40TA4 PO; +SODI1TAB PO; +VITA100T4 PO
[2017-06-01 08:38] LABS: BASOPHILS % (AUTO) 0.4 % (0-3); EOSINOPHILS % (AUTO) 2.4 % (0-5); MONOCYTES % (AUTO) 8.5 % (4-12); Mean Corpuscular Hemoglobin 31.4 pg (27.0-35.0); Mean Corpuscular Volume 91.4 fL (81-100); NEUTROPHILS % (AUTO) 65.2 % (40-74); Platelet Count 339 bil/L (150-400)
[2017-06-01] MEDS ORDERED: 0.9% Sodium Chloride 50 ML ONE (09:56)
[2017-06-01] MEDS ORDERED: Heparin 10,000 Unit/1,000 mL NS Premix IV ONE (09:56)
[2017-06-01] MEDS ORDERED: Heparin 1,000 Units/500 mL NS Premix IV ONE (09:56)
[2017-06-01] MEDS ORDERED: Nitroglycerin 50,000 mcg/250 mL D5W Premix IV ONE (09:56)
[2017-06-01] MEDS ORDERED: Heparin 1,000 Unit/mL 10 mL Inj ONE (09:56)
[2017-06-01] MEDS ORDERED: fentaNYL-PF 50 mCg/mL 2 mL Inj ONE (10:18)
--- NOTE | 2017-06-01 11:55 | CS94 ---
[address] [address] DIAGNOSTIC CARDIAC CATHETERIZATION PATIENT: BRENDA JO : 1940 MR#: [id number] ADMIT: 06/01/2017 JOB ID: [id number] SERVICE DATE: PROCEDURE: 1. Selective right and left coronary angiography. 2. Left heart catheterization. 3. Right heart catheterization. INDICATION: Aortic stenosis. Recurrent chest pain. PROCEDURAL DETAILS: The procedure was done via right femoral approach. A long 6-Bengali sheath was placed in the femoral artery and an 8-Bengali sheath was placed in the femoral vein. A [place]-Martine catheter and standard [place] catheters were used. For further details, please refer to the procedure log, and the coders are requested to do the same as well. ANGIOGRAPHIC FINDINGS: 1. Heavy calcification of the AV groove is noted on fluoroscopy. Moderate calcification of the coronaries is noted as well. 2. Right coronary artery is dominant. It has a calcific lesion of about 30-40% in its mid segment. No critical stenosis is noted. 3. Left main: No significant disease. 4. LAD is a moderate caliber transapical vessel. In its mid segment past the take-off of the first major diagonal, there is a calcific lesion of about 20-30%. No critical stenosis is noted. 5. Circumflex proximally 30% lesion. HEMODYNAMICS: 1. LV pressure was 142, LVEDP was 17. There was a 20 mm mean gradient upon pullback. With simultaneous measurement, there was a 25 mm valve gradient. The aortic valve area was calculated to be a mean of 1.3 cm2. 2. Right heart revealed PA pressure of 28/11. Pulmonary capillary wedge pressure was a mean of 15. Cardiac output was 5.83 x 6, and 5.35 by thermodilution. PA sat was 68%. AO sat was 94%. RV pressure was 29. RVEDP was 5. RA pressure was a mean of 4. SUMMARY: In summary, this gentleman does not have critical epicardial coronary artery disease. His aortic stenosis is moderate. Continue medical therapy and, if he continues to have chest discomfort, I would refer him to Gastroenterology for consultation.
--- NOTE | 2017-06-01 15:00 | NUR ---
report to Phi Ferreira R.N. right groin remains intact. Discharge instructions reviewed with patient. He remains in atrial fibrillation, he is to restart eliquis tonight.
--- NOTE | 2017-06-01 16:06 | NUR ---
OOB/Discharge Bedrest and IVF complete at 1530. Up to bathroom and in byrd without change in groin. Questions answered regarding D/C instructions and papers given. PT. and verbalize understanding. IVs discontinued intact. Discharged ambulatory with and all belongings in no distress at 1553.
== END 2017-06-01 23:59 | disposition home or self-care (01) ==
LOC: SOUO 00:27
PROVIDERS: ATTEND Internal Medicine Cardiovascular Disease
DX: I25.10 Atherosclerotic heart disease of native coronary artery without angina pectoris (principal); I48.1 Persistent atrial fibrillation; I35.0 Nonrheumatic aortic (valve) stenosis; Z79.01 Long term (current) use of anticoagulants; I50.9 Heart failure, unspecified; I47.2 Ventricular tachycardia; I10 Essential (primary) hypertension; K21.9 Gastro-esophageal reflux disease without esophagitis; N40.1 Benign prostatic hyperplasia with lower urinary tract symptoms
CPT/HCPCS: 36415; 80048; 85025; 93005; 93460; 99152; 99153; C1766; C1769; J1200; J1644; J2060; J2250; J3010; J7030; Q9967